=== PATIENT | male | born 1945 | race Caucasian/White ===

== ENCOUNTER 2025-04-13 15:36 | Outpatient (AMB) | payer MEDICARE, SELFPAY ==
--- OUTSIDE RECORDS SUMMARY | 2023-08-12 11:13 | XMS_ITS | Encounter Summary ---
Author Organization [place] [address] Care Team Providers Care Animal Geneticist Name Role Phone David Ashley MD Primary Care Provider [phone] Encounter Details Date Type Department Care Team ([facility] st Contact Info) Description 08/12/2023 12:13 PM EDT Hospital Encounter TH HISTORIC ENCOUNTERS EASTERN CONVERSION ONLY Catarina Lambert NP [address] [facility] [address] [place] [address] Social History Tobacco Use Types Packs/Day Years Used Date Smoking Tobacco: Former Cigarettes 1 Q uit: 07/03/2022 Smokeless Tobacco: Never Alcohol Use Standard Drinks/Week Comments Not Currently 0 (1 standard drink = 0.6 oz pur e alcohol) Sex and Gender Information Value Date Recorded Sex Assigned at Not on file Legal Sex Male 10:37 PM EST Gender Identity Not on file Sexual Orientation Not on file documented as of this encounter Last Filed Vital Signs Vital Sign Reading Time Taken Comments Blood Pressure - - Pulse - - Temperature - - Respiratory Rate - - Oxygen Saturation - - Inhaled Oxygen Concentration - - Weight 68.9 kg (152 lb) 03/29/2024 10:11 PM EDT Height 171.5 cm (5' 7.5 ) 03/29/2024 10:11 PM ED T Body Mass Index 23.46 03/29/2024 10:11 PM EDT documented in this encounter Functional Status * Calculated C-SSRS Risk Score (Lifetime/Recent) Answer Date of Assessment Author No Risk Indicated 02/18/2025 9:16 AM EDT Erasmo Cuello RN * [place] Suicide Severity Rating Scale (Screener/Recent Self-Report) Question Answer Date of Assessment Author 1. Wish to be (Past 1 Month) No 025 9:16 AM EDT Molly Cuello RN 2. Non-Specific Active Suici venancio Thoughts (Past 1 Month) No 02/18/2025 9:16 AM EDT Molly Cuello RN 6. Suicidal Behavior (Lifetime) No 9:16 AM EDT Molly Cuello RN documented as of this encounter Plan of Treatment Not on file documented as of this encounter Visit Diagnoses Not on filedocumented in this encounter Care Teams Animal Geneticist Relationship Specialty Start Date End Date David Ashley MD [address] [place] [address] PCP - General Internal Medicine 07/14/15 documented as of this encounter
--- OUTSIDE RECORDS SUMMARY | 2024-03-18 08:04 | XMS_ITS | Encounter Summary ---
Author Organization [email or web address] [address] Care Team Providers Care Property Field Adjuster Name Role Phone David Ashley MD Primary Care Provider [phone] Encounter Details Date Type Department Care Team ([facility] st Contact Info) Description 03/18/2024 9:04 AM EDT Hospital Encounter TH HISTORIC ENCOUNTERS EASTERN CONVERSION ONLY Bright Lindquist MD [address] [facility] [address] [place] [id number] Social History Tobacco Use Types Packs/Day Years [...] Sign Reading Time Taken Comments Blood Pressure 146/80 03/18/2024 9:18 AM EDT Pulse 68 03/18/2024 9:18 AM EDT Temperature - - Respiratory Rate - - Oxygen Saturation - - Inhaled Oxygen Concentration - - Weight 70.8 kg (156 lb) 03/18/2024 9:18 AM EDT Height 171.5 cm (5' 7.5 ) 03/18/2024 9:18 AM EDT Body Mass Index 24.07 03/18/2024 9:18 AM EDT documented in this encounter Functional Status * Calculated C-SSRS Risk Score (Lifetime/Recent) Answer Date of Assessment Author No Risk Indicated 02/18/2025 9:16 AM EDT Erasmo Cuello RN * [place] Suicide Severity Rating Scale (Screener/Recent Self-Report) Question Answer Date of Assessment Author 1. Wish to be (Past 1 Month) No 025 9:16 AM EDT Molly Cuello RN 2. Non-Specific Active Suici venancio Thoughts (Past 1 Month) No 02/18/2025 9:16 AM EDT Molly Cuello RN 6. Suicidal Behavior (Lifetime) No 9:16 AM EDT Molly Cuello RN documented as of this encounter Progress Notes * Bright Lindquist MD - 03/18/2024 9:15 AM EDT Images from the original note were not included. Progress Notes by Bright Lindquist MD at 03/18/2024 9:15 AM Author: Bright Lindquist MD Service: -- Author Type: Physician Filed: 03/18/2024 12:41 PM Encounter Date: 03/18/2024 Status: Signed Photovoltaic Subcontractor: Bright Lindquist MD (Physician) Cardiology Attending Follow up Outpatient Note- Bright Lindquist M.D. [facility] Patient Name:Rafael Garcia Patient :1945 Referring MD:David Ashley MD Chief Complaint: Preop HPI: The patient is a 78 y.o. male with a history of hypertension, hyperlipidemia, CVA and COPD who presents for follow up. He was found to have a lacunar infarct in 2022. Workup at that time showed mild carotid plaque but no stenosis and a normal echocardiogram. Most recently he has had episodes of chest tightness and shortness of breath. He presented to [facility] for this where he was ruled out for acute coronary syndrome. Cardiac evaluation was recommended. We sent him for a calcium score which came back mildly elevated at 36 and he subsequently had a nuclear stress test that was normal. We started him on Hyzaar for better blood pressure control. He returns today for follow-up. He was recently diagnosed with renal cell carcinoma and is planned for a nephrectomy. He is here for preoperative evaluation. He reports no recent chest pain or shortness of breath. No dizziness or syncope. No swelling or edema. He is easily able to climb a flight ofstairs. He had a low risk stress test about 6 months ago. Patient Active Problem List Diagnosis SNOMED CT(R) ? Urinary retention RETENTION OF URINE ? BPH with obstruction/lower urinary tract symptoms BENIGN PROSTATIC HYPERPLASIA WITH OUTFLOW OBSTRUCTION ? Acute kidney injury (HCC) ACUTE KIDNEY INJURY ? BPH with urinary obstruction BENIGN PROSTATIC HYPERPLASIA WITH OUTFLOW OBSTRUCTION ? Essential hypertension ESSENTIAL HYPERTENSION ? Mixed hyperlipidemia MIXED HYPERLIPIDEMIA ? Renal mass RENAL MASS Past Medical History: Diagnosis Date ? BPH (benign prostatic hyperplasia) ? COPD (chronic obstructive pulmonary disease) (HCC) ? GERD (gastroesophageal reflux disease) ? High cholesterol Past Surgical History: Procedure Laterality Date ? CERVICAL FUSION Anterior 09/11/2022 Procedure: C 08/03 ANTERIOR CERVICAL DISC FUSION 1 LEVEL; Surgeon: Deacon Torres MD; Location: [facility] OPERATING ROOM; Service: Spine; Laterality: Anterior; ? COLONOSCOPY N/A 08/18/2015 Procedure: COLONOSCOPY; Surgeon: Jerod Jurado MD; Location: [facility] ENDOSCOPY; Service: Gastroenterology; Laterality: N/A; ? PROSTATE SURGERY N/A 11/22/2022 Procedure: TRANSURETHRAL RESECTION OF PROSTATE; Surgeon: Ezequiel Jean MD; Location: [facility] MAIN OPERATING ROOM; Service: Urology; Laterality: N/A; 90m ? ROTATOR CUFF REPAIR Right ? VASECTOMY Social History Socioeconomic History ? Marital status: Single Spouse name: Not on file ? Number of children: Not on file ? Years of education: Not on file ? Highest education level: Not on file Occupational History ? Not on file Tobacco Use ? Smoking status: Former Packs/day: 1.00 Years: 53.00 Additional pack years: 0.00 Total pack years: 53.00 Types: Cigarettes Quit date: 07/2022 Years since quittin.7 Passive exposure: Past ? Smokeless tobacco: Never Substance and Sexual Activity ? Alcohol use: Not Currently Comment: rarely ? Drug use: No ? Sexual activity: Not on file Other Topics Concern ? Not on file Social History Narrative ? Not on file Social Determinants of Health Financial Resource Strain: Not on file Food Insecurity: Not on file Transportation Needs: Not on file Social Connections: Not on file Housing Stability: Not on file Family History Problem Relation Age of Onset ? Breast cancer Neg Hx ? Prostate cancer Neg Hx ? Nephrolithiasis Neg Hx Current Outpatient Medications Medication Sig Dispense Refill ? albuterol 108 (90 Base) MCG/ACT inhaler Inhale 2 puffs into the lungs every 6 (six) hours as needed. ? amLODIPine (NORVASC) tablet 5 mg Take 1 tablet (5 mg total) by mouth daily. ? betamethasone valerate (VALISONE) 0.1 % cream APPLY TO AFFECTED AREA TOPICALLY EVERY DAY 45 g 0 ? docusate sodium (Colace) 100 MG capsule Take 1 capsule (100 mg total) by mouth daily as needed for constipation. 30 capsule 2 ? losartan-hydrochlorothiazide (Hyzaar) 50-12.5 MG per tablet Take 1 tablet by mouth daily. 90 tablet 3 ? omeprazole (PRILOSEC) 40 MG capsule Take 1 capsule (40 mg total) by mouth daily. ? phenazopyridine (PYRIDIUM) 100 MG tablet TAKE 1 TABLET BY MOUTH 3 TIMES A DAY NEEDED FOR PAIN.20 tablet 0 No current facility-administered medications for this visit. No Known Allergies Review of Systems: (complete 12 point ROS completed and was all negative-except for noted positives in HPI and below) Constitutional: No fever, chills. No significant weight changes. Eyes : + Blurred vision CVS: As per HPI Resp: No cough, wheeze or sputum. GI: No nausea or vomitting. No diarrhea. No jaundice. : No urinary hesitancy or dribbling. No nocturia or urinary frequency. Skin: No skin changes. Vascular: No claudication or limb ischemia. Hem: No abnormal clotting. No bruising or bleeding. Rheum/MSK: No new joint swelling or pain. Neurologic: No focal neurological signs. Psych: Stable mood. Please see complete ROS scanned into the chart. Physical Exam: Vital signs: Vitals: 03/18/24 0918 BP: 146/80 Pulse: 68 SpO2: 96% Weight: 70.8 kg (156 lb) Height: 5' 7.5 (1.715 m) Body mass index is 24.07 kg/m??. General: Awake, alert, appears comfortable Head: Normocephalic and atraumatic. Neck: Supple. No carotid bruits. No JVD Cardiac: Regular rhythm. Normal heart sounds. No murmurs. Respiratory: Normal effort. Clear lungs. No crackles or wheezes. Abdomen: Soft. Non-tender. Non-distended. +BS Skin/Vascular: Warm dry skin. Normal peripheral pulses. Extremities: No LE edema. Neurologic: No focal abnormalities. Psychiatric: Alert and oriented x3. Normal mood. Labs: Lab Results Component Value Date WBC 6.5 08/01/2023 RBC 4.21 (L) 08/01/2023 HEMATOCRIT 35.7 (L) 08/01/2023 HEMOGLOBIN 12.5 (L) 08/01/2023 MCV 84.8 08/01/2023 MCH 29.7 08/01/2023 MCHC 35.0 08/01/2023 RDW 13.1 08/01/2023 PLTCOUNT 275 08/01/2023 MPV 9.4 08/01/2023 NEUTROPHILS 71.3 08/01/2023 LYMPHOCYTES 13.5 (L) 08/01/2023 EOSINOPHILS 2.9 08/01/2023 BASOPHILS 0.5 08/01/2023 NEUTROPHABSO 4.6 08/01/2023 LYMPHOCYABSO 0.9 (L) 08/01/2023 MONOCYTABSOL 0.7 08/01/2023 EOSINOPHIABS 0.2 08/01/2023 BASOPHILSABS 0.0 08/01/2023 Lab Results Component Value Date BUN 11 08/01/2023 CREATININE 1.0 08/01/2023 NA 140 08/01/2023 K 4.0 08/01/2023 CL 103 08/01/2023 CO2 29 08/01/2023 GLUCFASTING 109 (H) 02/06/2018 CALCIUM 8.9 08/01/2023 ALBUMIN 4.0 02/06/2018 ALKPHOS 65 02/06/2018 AST 12 02/06/2018 ALT 12 02/06/2018 LABBILI 0.7 02/06/2018 No results found for: HGBA1C Lab Results Component Value Date CHOL 241 (H) 08/12/2023 HDL 52 08/12/2023 LDLCHOL 149 (H) 08/12/2023 TRIGLYCERIDE 259 (H) 08/12/2023 CHOLHDLCRAT 4.6 08/12/2023 Data/Imaging: X-Ray Abdomen 1 view Result Date: 02/19/2024 Exam: X-ray abdomen 2 views INDICATION: Pain There is moderate diffuse fecal retention. No acute bowel obstruction. The flank stripes and psoas outlines appear intact. Renal outlines partially obscured. Mild degenerative change of hips IMPRESSION: Moderate fecal retention without obstruction Reportreviewed and signed by : Dr. Dmitry Tenorio on 02/19/2024 3:16 PM. Workstation Name - DAISHA *I have personally reviewed the patients cardiac imaging and diagnostics and my independent conclusions are contained below. TTE 10/25/2022: LVEF 60%. Aortic sclerosis. CAC 08/08/2023: 36.1 SPECT MPI 08/12/2023: LVEF 52%. Normal perfusion. ECG: Sinus rhythm. Normal ECG. Assessment and Plan: 1) preoperative evaluation: He is scheduled for a nephrectomy with Dr. Lazar on 03/29/2024. He reports no concerning cardiac symptoms. He has a good functional tolerance. He had a low risk nuclear stress test in August 2023. He may proceed with planned surgery without any further cardiac testingat this time. 2) HTN: Blood pressure mildly elevated but acceptable. Continue present therapy with close monitoring. 3) hyperlipidemia: He had a mildly elevated calcium score with LDL 149. Continue atorvastatin 20 mgdaily. Goal LDL <100. 4) CVA: He has a prior lacunar infarct likely from hypertension. He had a CTA which showed atherosclerotic calcifications but no stenosis. Recommend tight blood pressure control as above. The patient was counseled on therapeutic lifestyle changes, including cardiovascular exercise and dietary modification, to promote achieving goal weight, optimal lipid parameters, and increased cardiovascular fitness . Diagnoses and all orders for this visit: Preop cardiovascular exam - ECG 12 lead Essential hypertension Mixed hyperlipidemia Return in about 6 months (around 09/16/2024), or if symptoms worsen or fail to improve. Bright Lindquist MD, [facility], [facility] Cardiologists, [facility] 03/18/2024 11:53 AM EST documented in this encounter Plan of Treatment Not on file documented as of this encounter Procedures Procedure Name Priority Date/Time Associated Diagnosis Comments ECG 03/18/2024 documented in this encounter Results * ECG (03/18/2024) us Provider Onbase CV HISTORICAL CONV PROCEDURES Final Result documented in this encounter Visit Diagnoses Not on filedocumented in this encounter Care Teams Property Field Adjuster Relationship Specialty Start Date End Date David Ashley MD [address] [place] [address] PCP - General Internal Medicine 07/14/15 documented as of this encounter
[2025-04-13 15:32] VITALS: BP 148/70; PULSE 93; O2SAT 97; BMI 24.0
--- NOTE | 2025-04-13 15:32 | HO.NEPHOV ---
Vital Signs 04/13/25 15:32 Height 5 ft 7 in Weight 153 lb BMI 24.0 BP 148/70 H Blood Pressure Location Lt brachial Position Sitting Pulse 93 Pulse Source Pulse Oximeter Pulse Oximetry (%) 97 Oxygen Delivery Method Room Air Intake Visit Reasons: ENP: HTN/Hyperlipidemia/Anemia. Air Saw Operator Required: No Accompanied by: Self / Same As Patient Allergies Seasonal Allergies Allergy (Unknown, Verified 04/13/25 15:38) Unknown Medication List - Last Reconciled 04/13/25 by Gurpreet Dick MD albuterol sulfate 90 mcg/actuation 2 puffs inhalation Q6H PRN amlodipine 5 mg PO DAILY czwgfdyhdb-rgvjqzvi-bymxftehav 160-9-4.8 mcg/actuation (Breztri Aerosphere) 2 inhalations inhalation DAILY PRN linaclotide (Linzess) 145 mcg PO DAILY losartan-hydrochlorothiazide 50-12.5 mg 1 tab PO DAILY memantine 10 mg PO DAILY omeprazole 40 mg PO QAM trazodone 50 mg PO BEDTIME HPI Comments Details: The patient is a 79-year-old male presenting with decreased kidney function and associated symptoms. He has a history of partial nephrectomy on the right kidney due to a spot identified during a CAT scan, which was removed via robotic surgery. The left kidney was not affected, and the surgery occurred several years ago. The patient has a history of hypertension for at least five years, managed with losartan hydrochlorothiazide and amlodipine. The patient underwent prostate surgery approximately three years ago, which initially involved catheterization for about a week. He reports occasional urinary incontinence and nocturia, waking once per night to urinate. The patient experiences constipation, managed with Linzess, and reports needing to force bowel movements. He has a history of smoking, having quit four years ago after smoking a pack a day. [facility] Medical History (Updated 04/13/25 @ 16:11 by Gurpreet Dick MD) Hypomagnesemia Hypocalcemia Mixed hyperlipidemia MCI (mild cognitive impairment) GERD (gastroesophageal reflux disease) CKD (chronic kidney disease) Cancer of right kidney Kidney malignancy Muscle spasm Hyperlipidemia Disease of spinal cord, unspecified Hypertension Reeves catheter in place on admission COPD (chronic obstructive pulmonary disease) Hematuria Anemia Surgical History (Updated 04/13/25 @ 15:42 by STACEY Byrne) History of prostate surgery (~2022) Physical Exam Vital Signs: Last Vital Signs Pulse 93 04/13/25 15:32 BP 148/70 H 04/13/25 15:32 Pulse Ox 97 04/13/25 15:32 Oxygen Delivery Method Room Air 04/13/25 15:32 BMI result Body Mass Index 24.0 Comfortable Neck supple no JVD. Lungs entry equal no rales. Heart S1-S2 heard no gallop or rub. Abdomen soft nontender. Neuro alert awake oriented. No asterixis. Extremities no edema. Results Reviewed Results Reviewed: Creatinine 1.82 EGFR 13 mL/minute Potassium 5.7. Assessment & Plan Assessment & Plan (1) CKD (chronic kidney disease): Code(s): N18.9 - Chronic kidney disease, unspecified Category: Medical Plan 1. Chronic Kidney Disease Differential diagnosis includes obstructive uropathy. Other possibilities including hypertensive nephrosclerosis. Less likely possibilities would include glomerular nephritis interstitial disease and we will rule that out. - Plan to perform a kidney ultrasound to assess kidney and bladder condition. - Blood and urine tests are ordered to evaluate kidney function and potassium levels. - Temporarily discontinue losartan due to LEVI and hyperkalemia 2. Hypertension Maintain blood pressure less than 130/80 Stay on low-sodium diet I will readjust antihypertensives after the basic workup. 3. Hyperkalemia Due to the accompanied with LEVI and continued use of ARB. Hold losartan - Advise to avoid high potassium foods such as bananas and oranges. - Plan to monitor potassium levels through blood tests. Orders: Orders Basic Metabolic Panel Today I10 - Essential (primary) hypertension, N18.9 - Chronic kidney disease, unspecified Total Protein Urine Random Today I10 - Essential (primary) hypertension, N18.9 - Chronic kidney disease, unspecified UA and rflx microscopic Today I10 - Essential (primary) hypertension, N18.9 - Chronic kidney disease, unspecified Parathyroid Hormone Intact Today I10 - Essential (primary) hypertension, N18.9 - Chronic kidney disease, unspecified US renal BI Today I10 - Essential (primary) hypertension, N18.9 - Chronic kidney disease, unspecified Complete Blood Count no Diff Today I10 - Essential (primary) hypertension, N18.9 - Chronic kidney disease, unspecified Creatinine Urine Today I10 - Essential (primary) hypertension, N18.9 - Chronic kidney disease, unspecified Patient Instructions: - Stop taking losartan until further notice. - Avoid eating bananas and oranges due to high potassium content. - Continue using Linzess daily until bowel movements are regular. - Schedule and complete a kidney ultrasound before traveling. - Follow up with blood and urine tests as ordered. Coding Level of Care Code New Pt Level 4 (64638) Diagnoses CKD (chronic kidney disease) N18.9
--- OUTSIDE RECORDS SUMMARY | 2025-04-13 18:42 | XMS_ITS | Clinical Summary ---
Author Organization [facility] [employer] [place] Address [address] [place] [address] Phone Care Team Providers Care Food Or Baggage Handling [place] Name Role Phone David Ashley MD Primary Care Provider [phone] Allergies No known active allergies Medications budesonide/glyc opyr/formoterol (BREZTRI AEROSPHERE INHL) Inhale into the lungs daily. Active albuterol HFA (PROAIR HFA ; PROVENTIL HFA ; VENTOLIN HFA) 90 mcg/actuation inhaler Inhale 2 puffs into the lungs every 6 (six) hours as needed. 10/29/2022 Active omeprazole (PriLOSEC) [address] capsule Take 1 capsule (40 mg total) by mouth daily. 06/05/2015 Active oxyCODONE (ROXICODONE) 5 mg immediate release tablet Take 1 tablet (5 mg total) by mouth every 4 (four) hours as needed for pain for up to 6 doses. 04/01/2024 Active atorvastatin (LIPITOR) 20 mg tablet TAKE 1 TABLET BY MOUTH EVERY DAY 90 tablet 02/18/2025 Active cyanocobalamin (VITAMIN B-12) 1,000 mcg tablet Take 1 tablet (1,000 mcg total) by mouth 1 (one) time each day. 30 each 2 02/20/2025 05/21/20 25 Active multivitamin tablet Take 1 tablet by mouth 1 (one) time each day. 30 each 02/21/2025 03/23/20 25 ergocalciferol (VITAMIN D-2) 1,250 mcg (50,000 unit) capsule Take 1 capsule (50,000 Units total) by mouth 1 (one) time per week. 6 capsule 02/20/2025 04/03/20 25 Active Problems Problem Noted Date Diagnosed Date Hypocalcemia 02/18/2025 Assessment & Plan (02/18/2025 1:42 PM EDT): Tingling all over on admit -- Low ionized ca S/p one dose of iv calcium gluconate Recheck after replacement Check intact PTH , dihydroxy vit D levels Nephrology consult Hypomagnesemia 02/18/2025 Assessment & Plan (02/18/2025 1:42 PM EDT): Poor oral intake and combination of thiazide diuretics with rt partial nephrectomy Replace iv Hold PPI --may be contributing to poor absorption Renal insufficiency 02/18/2025 Assessment & Plan (02/18/2025 1:42 PM EDT): No past labs Gfr 47 For now hydrate with ns 75ml /hr Renal US Consult neph-dont think he follows with anyone COPD (chronic obstructive pu lmonary disease) ([facility] V24, [facility] V28) 02/18/2025 Assessment & Plan (02/18/2025 1:42 PM EDT): Stopped smoking 3yrs ago Not wheezing Not oxyg or steroid dep Has neb machine at home Continue prn alb nebs Renal cell cancer, right ([facility] V24, [facility] V 28) 02/18/2025 Assessment & Plan (02/18/2025 1:42 PM EDT): S/p partial nephrectomy -rt --03/25 Follows with his urologist -as per the patient --last f/u 04/25--with 6mth f/u No hematuria GERD (gastroesophageal reflux disease) 5 Assessment & Plan (02/18/2025 1:42 PM EDT): Asymptomatic Hold PPI for now --severe hypoma 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 02/18/2025 Assessment & Plan (02/18/2025 1:42 PM EDT): As evidenced by CT Cx spine--stable -no radiculitis History of CVA (cerebrovascular accident) 2024 Assessment & Plan (02/18/2025 1:42 PM EDT): Old left BG cva Not taking any aspirin Will resume ( patient counselled ) Anemia 02/18/2025 Assessment & Plan (02/18/2025 1:42 PM EDT): Asymptomatic Anemia profile - Renal mass 02/06/2024 Hypertension 08/07/2023 Assessment & Plan (02/18/2025 1:42 PM EDT): Systolics soft --hold amlodipine and losartan/hct for now Mixed hyperlipidemia 08/07/2023 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 Acute kidney injury (CMS/[facility] V24) 11/12/2022 Overview (05/11/2024): Added automatically from request for surgery [id number] BPH with obstruction/lower urinary tract symptom s 11/12/2022 Overview (05/11/2024): Added automatically from request for surgery [id number] Urinary retention 11/02/2022 Encounters Date Type Department Care Team Description 02/18/2025 9:00 AM EDT - 02/20/2025 3:08 PM EDT Hospital Encounter [facility] CV Surg Card 8-[address] [place] [address] Reji Bautista MD Maan, Vikas, MD Jain, Varun, MD Hypocalcemia (Primary Dx); Dizziness; Hypomagnesemia Discharge Disposition: Home or Self Care from Last 3 Months Surgical History Surgery Date Site/Laterality Comments ROTATOR CUFF REPAIR Right PROCEDURE:ROTATOR CUFF REPAIR VASECTOMY PROCEDURE:VASECTOMY COLONOSCOPY 08/18/2015 N/A PROCEDURE:COLONOSCOPY;COMMENT:Procedure : COLONOSCOPY; Surgeon: Jerod Jurado MD; Location: [facility]; Service: Gastroenterology; Laterality: N/A; CERVICAL FUSION 09/11/2022 Anterior PROCEDURE:CERVICAL FUSION;COMMENT:Procedure: C 3/4 ANTERIOR CERVICAL DISC FUSION 1 LEVEL; Surgeon: Deacon Torres MD; Location: [facility] RO[facility]; Service: Spine; Laterality: Anterior; PROSTATE SURGERY 11/22/2022 N/A PROCEDURE:PROSTATE SURGERY;COMMENT:Procedure: TRANSURETHRAL RESECTION OF PROSTATE; Surgeon: Ezequiel Jean MD; Location: [facility]; Service: Urology; Laterality: N/A; 90m Medical History Medical History Date Comments High cholesterol DX:High cholest erika BPH (benign prostatic hyperplasia) DX:BPH (benign prostatic hyperplasia) GERD (gastroesophageal reflux disease) DX:GERD (gastroesophageal reflux disease) COPD (chronic obstructive pu lmonary disease) ([facility] V24, [facility] V28) DX:COPD (chronic o bstructive pulmonary disease) ([facility]) Hypertension DX:Hypertension HL (hearing loss) DX:HL (hearing loss);COMMENT:hearing aids Visual impairment DX:Visual impa irment Family History Medical History Relation Name Comments Breast cancer Neg Hx Nephrolithiasis Neg Hx Prostate cancer Neg Hx Social History Tobacco Use Types Packs/Day Years [...] on file Sexual Orientation Not on file Obstetrics History Last Filed Vital Signs Vital Sign Reading Time Taken Comments Blood Pressure 123/71 02/20/2025 11:25 AM EDT Pulse 72 02/20/2025 11:25 AM EDT Temperature 36.6 C (97.8 F) 02/20/2025 11:25 AM EDT Respiratory Rate 16 02/20/2025 11:25 AM EDT Oxygen Saturation 98% 02/20/2025 11:25 AM EDT Inhaled Oxygen Concentration - - Weight 68 kg (150 lb) 02/18/2025 1:12 PM EDT Height 170.2 cm (5' 7 ) 02/18/2025 1:12 PM EDT Body Mass Index 23.49 02/18/2025 1:12 PM EDT Plan of Treatment Health Maintenance Due Date Last Done Comments Pneumococcal Vaccine: 50+ Years (3 of 3 - PCV20 or PCV21) 09/20/2015 06/21/2015, 09/19/2010, 09/19/2010 DTaP,Tdap,and Td Vaccines (4 - Td or Tdap) 09/19/2020 09/19/2010, 09/19/2010, 05/02/1999 RSV Immunization Adult Patients (1 - 1-dose 75+ series) 2021 Hepatitis C Screening 05/05/2022 Medicare Annual Wellness Visit 05/05/2022 Social Influencers of Health Screening 05/05/2022 Zoster Vaccines (2 of 2) 07/03/2022 05/08/2022, 08/01 Depression Screening 06/02/2024 COVID-19 Vaccine ( - season) 2025 06/09/2021, 09/20/2020, 08/29/2020 Influenza Vaccine (#1) 2025 , 06/16/2020, 04/02/2017, Additional history exists Lung Cancer Screening (Low Dose CT) 08/02/2025 08/02/2024 Falls Risk Assessment 02/20/2026 02/20/2025 Hypertension/CHF/CAD Annual BMP Blood Test 02/20/2026 02/20/2025, 02/19/2025, 02/18/2025, Additional history exists Cholesterol Screening (Lipid Panel) 08/11/2028 08/12/2023, 02/06/2018 Abdominal Aortic Aneurysm (AAA) Screen Completed 02/23/2025 HIB Vaccines Aged Out No longer eligi ble based on patient's age to complete this topic HPV Vaccines Aged Out No longer eligi ble based on patient's age to complete this topic Hepatitis A Vaccines Aged Out No long er eligible based on patient's age to complete this topic Hepatitis B Vaccines Aged Out No long er eligible based on patient's age to complete this topic IPV Vaccines Aged Out No longer eligi ble based on patient's age to complete this topic MMR Vaccines Aged Out No longer eligi ble based on patient's age to complete this topic Meningococcal ACWY Vaccine Aged Out N o longer eligible based on patient's age to complete this topic Meningococcal B Vaccine Aged Out No l onger eligible based on patient's age to complete this topic RSV Immunization Patients Under 20 months Aged Out No longer eligible based on patient's age to complete this topic Varicella Vaccines Aged Out No longer eligible based on patient's age to complete this topic Medical Devices Implanted Type 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 Device Identifier Shelf Expiration Date Model / Serial / Lot Surgiflo Hemostatic Matrix [employer]il-Ethi [id number] Implanted:Qty: 1 on 09/11/2022 by Deacon Torres MD Implants N/A: Spine Cervical [employer] 04/01/2024 2991 / / [id number] Surgiflo Hemostatic Matrix [employer]il-Ethi [id number] Implanted:Qty: 1 on 03/29/2024 by Davin Lazar MD Implants Right: Kidney [employer] 08/10/2025 2991 / / [id number] Vikos Cervical 14x14.5x6mm 7d Stry-Spin [id number] - [id number] Implanted:Qty: 1 on 09/11/2022 by Deacon Torres MD N/A: Spine Cervical [employer] 12/29/2024 [id number] / [id number] / Anterior Cervical Plate Constr 1 Level 22mm Stry-K2m [id number] Implanted:Qty: 1 on 09/11/2022 by Deacon Torres MD N/A: Spine Cervical [employer] [id number] / / Screw Va Self-Start 4x14mm Stry-K2m [id number] Implanted:Qty: 4 on 09/11/2022 by Deacon Torres MD N/A: Spine Cervical [employer] [id number] / / Procedures Procedure Name Priority Date/Time Associated Diagnosis Comments CBC WITH AUTO DIFFERENTIAL Routine 02/20/2025 7:40 AM EDT CBC AND DIFFERENTIAL Routine 02/20/2025 7:40 AM EDT BASIC METABOLIC PANEL Routine 02/20/2025 7:40 AM EDT MAGNESIUM Routine 02/20/2025 7:40 AM EDT PHOSPHORUS Routine 02/20/2025 7:[address] CHEST WO CONTRAST STAT 02/19/2025 2:35 PM EDT VITAMIN D 25 HYDROXY STAT 02/19/2025 12:28 PM EDT US RETROPERITONEAL COMPLETE Routine 02/19/2025 11:26 AM EDT IRON AND TIBC Routine 02/19/2025 8:44 AM EDT FERRITIN Routine 02/19/2025 8:44 AM EDT VITAMIN B12 AND FOLATE Routine 8:44 AM EDT VITAMIN D 1,25 DIHYDROXY Routine 02/19/2025 8:44 AM EDT CALCIUM, IONIZED Routine 02/19/2025 8:44 AM EDT MAGNESIUM Routine 02/19/2025 8:44 AM EDT BASIC METABOLIC PANEL Routine 02/19/2025 8:44 AM EDT ALBUMIN STAT 02/18/2025 8:12 PM EDT CALCIUM STAT 02/18/2025 8:12 PM EDT MAGNESIUM STAT 02/18/2025 8:12 PM EDT PARATHYROID HORMONE INTACT STAT 02/18/2025 11:[address] ANGIO HEAD/NECK WO AND/OR W CONTRAST STAT 02/18/2025 11:[address] CERVICAL SPINE WO CONTRAST STAT 02/18/2025 11:28 AM EDT MAGNESIUM STAT 02/18/2025 10:47 AM EDT BASIC METABOLIC PANEL STAT 02/18/2025 10:47 AM EDT CALCIUM, IONIZED STAT 02/18/2025 10:4 7 AM EDT POCT GLUCOSE BLOOD Routine 02/18/2025 9: 24 AM EDT ALBUMIN Add-On 02/18/2025 9:20 AM EDT PHOSPHORUS STAT Add-on 02/18/2025 9:20 AM EDT CBC WITH AUTO DIFFERENTIAL STAT 02/18/2025 9:20 AM EDT MAGNESIUM STAT 02/18/2025 9:20 AM EDT BASIC METABOLIC PANEL STAT 02/18/2025 9:20 AM EDT CBC AND DIFFERENTIAL STAT 02/18/2025 9:20 AM EDT ECG 12-LEAD STAT 02/18/2025 9:18 AM EDT LIPID PANEL Routine 08/12/2023 from Last 3 Months or Most Recently Relevant to Health Maintenance Results * (ABNORMAL) CBC auto differential (02/20/2025 7:40 AM EDT) Only the most recent of2 resultswithin the time period is included. WBC 4.2 4.0 - 10.5 K/[facility] LAB HEMETOLOGY METHOD 02/20/2025 9:[address] [facility] RBC 3.19(L) 4.70 - 6.00 M/[facility] LAB HEMETOLOGY METHOD 02/20/2025 9:13 AM EDT [facility] Hemoglobin 9.7(L) 13.5 - 18.0 g/dL LAB HEMETOLOGY METHOD 02/20/2025 9:13 AM EDT [facility] Hematocrit 28.8(L) 40.0 - 54.0 % LAB HEMETOLOGY METHOD 02/20/2025 9:13 AM EDT [facility] MCV 90.2 78.0 - 100.0 FL LAB HEMETOLOGY METHOD 02/20/2025 9:13 AM EDT [facility] MCH 30.4 25.0 - 33.0 pcg LAB HEMETOLOGY METHOD 02/20/2025 9:13 AM EDT [facility] MCHC 33.7 32.0 - 36.0 g/dL LAB HEMETOLOGY METHOD 02/20/2025 9:13 AM EDT [facility] RDW 13.3 12.1 - 17.7 % LAB HEMETOLOGY METHOD 02/20/2025 9:13 AM EDT [facility] Platelets 297 150 - 450 K/mcL LAB HEMETOLOGY METHOD 02/20/2025 9:13 AM EDT [facility] MPV 7.5 7.4 - 11.4 FL LAB HEMETOLOGY METHOD 02/20/2025 9:13 AM EDT [facility] Neutrophils Relative 54.6 44.0 - 74.0 % LAB HEMETOLOGY METHOD 02/20/2025 9:13 AM EDT [facility] Lymphocytes Relative 24.3 20.0 - 48.0 % LAB HEMETOLOGY METHOD 02/20/2025 9:13 AM EDT [facility] Monocytes Relative 14.3(H) 2.0 - 12.0 % LAB HEMETOLOGY METHOD 02/20/2025 9:13 AM EDT [facility] Eosinophils Relative 6.3(H) 0.0 - 6.0 % LAB HEMETOLOGY METHOD 02/20/2025 9:13 AM EDT [facility] Basophils Relative 0.5 0.0 - 2.0 % LAB HEMETOLOGY METHOD 02/20/2025 9:13 AM EDT [facility] Neutrophils Absolute 2.30 1.80 - 7.80 K/mcL LAB HEMETOLOGY METHOD 02/20/2025 9:13 AM EDT [facility] Lymphocytes Absolute 1.00 1.00 - 3.20 K/mcL LAB HEMETOLOGY METHOD 02/20/2025 9:13 AM EDT [facility] Monocytes Absolute 0.60 0.00 - 0.80 K/mcL LAB HEMETOLOGY METHOD 02/20/2025 9:13 AM EDT [facility] Eosinophils Absolute 0.30 0.00 - 0.50 K/mcL LAB HEMETOLOGY METHOD 02/20/2025 9:13 AM EDT [facility] Basophils Absolute 0.00 0.00 - 0.20 K/mcL LAB HEMETOLOGY METHOD 02/20/2025 9:13 AM EDT [facility] Blood Venous blood specimen / Unknown Venipuncture / Unknown 02/20/2025 7:40 AM EDT 02/20/2025 8:44 AM EDT us Mario Graham MD LAB BLOOD ORDERABLES Final Resul t [facility] [address] [place] [address], [place] [phone] * Phosphorus (02/20/2025 7:40 AM EDT) Only the most recent of2 resultswithin the time period is included. Phosphorus 2.6 2.5 - 4.5 mg/dL LAB CHEMISTRY METHOD 02/20/2025 9:13 AM EDT [facility] Blood Venous blood specimen / Unknown Venipuncture / Unknown 02/20/2025 7:40 AM EDT 02/20/2025 8:44 AM EDT us Mario Graham MD LAB BLOOD ORDERABLES Final Resul t Performing Organization Address [facility]/ZIP Co de Phone Number [facility] [address] [place] [address], [place] [phone] * Magnesium (02/20/2025 7:40 AM EDT) Only the most recent of5 resultswithin the time period is included. Magnesium 1.8 1.7 - 2.8 mg/dL LAB CHEMISTRY METHOD 02/20/2025 9:13 AM EDT [facility] Blood Venous blood specimen / Unknown Venipuncture / Unknown 02/20/2025 7:40 AM EDT 02/20/2025 8:44 AM EDT us Mario Graham MD LAB BLOOD ORDERABLES Final Resul t Performing Organization Address [facility] de Phone Number [facility] [address] [place] [address], [place] [phone] * (ABNORMAL) Basic metabolic panel (02/20/2025 7:40 AM EDT) Only the most recent of4 resultswithin the time period is included. Sodium 134(L) 135 - 145 mmol/L LAB CHEMISTRY METHOD 02/20/2025 9:28 AM EDT [facility] Potassium 4.7 3.5 - 5.1 mmol/L LAB CHEMISTRY METHOD 02/20/2025 9:28 AM EDT [facility] Chloride 102 98 - 107 mmol/L LAB CHEMISTRY METHOD 02/20/2025 9:28 AM EDT [facility] CO2 25 24 - 32 mmol/L LAB CHEMISTRY METHOD 02/20/2025 9:28 AM EDT [facility] Anion Gap 7 5 - 14 LAB CHEMISTRY METHOD 02/20/2025 9:28 AM EDT [facility] Glucose 94 70 - 199 mg/dL LAB CHEMISTRY METHOD 02/20/2025 9:28 AM EDT [facility] BUN 10 9 - 20 mg/dL LAB CHEMISTRY METHOD 02/20/2025 9:28 AM EDT [facility] Creatinine 1.10 0.70 - 1.30 mg/dL LAB CHEMISTRY METHOD 02/20/2025 9:28 AM EDT [facility] eGFR 69 >=60 mL/min/1. 73m2 LAB CHEMISTRY METHOD 02/20/2025 9:28 AM EDT [facility] Comment:Calculation based on the Chronic Kidney Disease Epidemiology Collaboration (CKD-EPI) equation refit without adjustment for race. BUN/Creatinine Ratio 9.1(L) 12.0 - 20.0 LAB CHEMISTRY METHOD 02/20/2025 9:28 AM EDT [facility] Calcium 8.3(L) 8.4 - 10.2 mg/dL LAB CHEMISTRY METHOD 02/20/2025 9:28 AM EDT [facility] Comment:Verified by repeat a nalysis Blood Venous blood specimen / Unknown Venipuncture / Unknown 02/20/2025 7:40 AM EDT 02/20/2025 8:44 AM EDT us Mario Graham MD LAB BLOOD ORDERABLES Final Resul t [facility] [address] [place] [address], [place] [phone] * CT Chest wo Contrast (02/19/2025 2:35 PM EDT) Anatomical Region Laterality Modality Body Computed Tomogra phy 02/19/2025 2:37 PM EDT Impressions 02/19/2025 2:55 PM EDT 1. Moderately severe bilateral upper lobe predominant emphysematous changes. No airspace consolidation or pleural effusion. Ill-defined irregular shaped right upper lobe opacity. Differential considerations include infection or malignancy. Follow-up CT of the chest in 3 months is recommended. 0.4 cm left apical pulmonary nodule. 2. Mildly enlarged mediastinal lymph nodes and thickening of the anterior mediastinal pleura, nonspecific. 3. Generalized wall thickening of the stomach and prominent fat stranding throughout the visualized portions of the abdomen. Further evaluation with contrast-enhanced CT of the abdomen and pelvis is recommended. -------- FINAL REPORT -------- Dictated By: Amairani Simmons Dictated Date: 02/19/2025 14:37 ET Assigned Physician: Amairani Simmons Reviewed and Electronically Signed By: Amairani Simmons Signed Date: 02/19/2025 14:55 ET Workstation ID: [id number] Transcribed By: Self Edit Transcribed Date: 02/19/2025 14:37 ET Narrative 02/19/2025 2:[address] CHEST WITHOUT CONTRAST HISTORY: Respiratory illness right upper lobe pulmonary abnormality on prior imaging. TECHNIQUE: Contiguous helical CT slices through the chest were obtained without the administration of intravenous contrast. Coronal and sagittal reformatted images were made available. All CT scans are performed using dose optimization technique as appropriate to a performed exam including the following: Automated Exposure control and adjustment of the mA and/or kV according to patient size. COMPARISON: Chest x-ray dated February 09, 2024 and MRI of the abdomen dated January 20, 2024 FINDINGS: LUNGS/AIRWAY: Moderately severe bilateral upper lobe predominant emphysematous changes are present. There is no airspace consolidation or pleural effusion. There is a 0.4 cm left apical pulmonary nodule adjacent to a vessel seen on axial series 2 image 58. In addition, there is an ill-defined irregular shaped right upper lobe opacity seen on axial images 100-114. Differential considerations include infection or malignancy. The airways are widely patent. There is no bronchiectasis. MEDIASTINUM/PAPO: Mildly enlarged mediastinal lymph nodes are present in the pretracheal region measuring up to 1.1 cm in short axis. The thoracic esophagus is unremarkable. CARDIOVASCULAR: Heart is normal in size. No pericardial effusion. Thoracic aorta is normal in caliber and demonstrates atherosclerotic changes. CHEST WALL/PLEURA: There is thickening of the anterior mediastinal pleura which is nonspecific. No pleural effusion or pneumothorax. AXILLA/SUPRACLAVICULAR: No axillary or supraclavicular lymphadenopathy. Visualized thyroid is unremarkable. BONES: No aggressive osseous lesions. LIMITED UPPER ABDOMEN: There is prominent generalized wall thickening of the stomach. Marked fat stranding is present throughout the visualized abdomen. Further evaluation with contrast-enhanced CT of the abdomen and pelvis is recommended. Procedure Note Amairani Simmons MD - 02/19/2025 CT CHEST WITHOUT CONTRAST HISTORY: Respiratory illness right upper lobe pulmonary abnormality onprior imaging. TECHNIQUE: Contiguous helical CT slices through the chest were obtainedwithout the administration of intravenous contrast. Coronal and sagittalreformatted images were made available. All CT scans are performed usingdose optimization technique as appropriate to a performed exam includingthe following: Automated Exposure control and adjustment of the mA and/orkV according to patient size. COMPARISON: Chest x-ray dated February 09, 2024 and MRI of the abdomendated January 20, 2024 FINDINGS: LUNGS/AIRWAY: Moderately severe bilateral upper lobe predominant emphysematous changesare present. There is no airspace consolidation or pleural effusion. Thereis a 0.4 cm left apical pulmonary nodule adjacent to a vessel seen onaxial series 2 image 58. In addition, there is an ill-defined irregularshaped right upper lobe opacity seen on axial images 100-114. Differentialconsiderations include infection or malignancy. The airways are widelypatent. There is no bronchiectasis. MEDIASTINUM/PAPO: Mildly enlarged mediastinal lymph nodes are present inthe pretracheal region measuring up to 1.1 cm in short axis. The thoracicesophagus is unremarkable. CARDIOVASCULAR: Heart is normal in size. No pericardial effusion. Thoracicaorta is normal in caliber and demonstrates atherosclerotic changes. CHEST WALL/PLEURA: There is thickening of the anterior mediastinal pleurawhich is nonspecific. No pleural effusion or pneumothorax. AXILLA/SUPRACLAVICULAR: No axillary or supraclavicular lymphadenopathy.Visualized thyroid is unremarkable. BONES: No aggressive osseous lesions. LIMITED UPPER ABDOMEN: There is prominent generalized wall thickening ofthe stomach. Marked fat stranding is present throughout the visualizedabdomen. Further evaluation with contrast-enhanced CT of the abdomen andpelvis is recommended. IMPRESSION: 1. Moderately severe bilateral upper lobe predominant emphysematouschanges. No airspace consolidation or pleural effusion. Ill-definedirregular shaped right upper lobe opacity. Differential considerationsinclude infection or malignancy. Follow-up CT of the chest in 3 months isrecommended. 0.4 cm left apical pulmonary nodule. 2. Mildly enlarged mediastinal lymph nodes and thickening of the anteriormediastinal pleura, nonspecific. 3. Generalized wall thickening of the stomach and prominent fat strandingthroughout the visualized portions of the abdomen. Further evaluation withcontrast-enhanced CT of the abdomen and pelvis is recommended. -------- FINAL REPORT -------- Dictated By: Amairani Simmons Dictated Date: 02/19/2025 14:37 ET Assigned Physician: Amairani Simmons Reviewed and Electronically Signed By: Amairani Simmons Signed Date: 02/19/2025 14:55 ET Workstation ID: [id number] Transcribed By: Self Edit Transcribed Date: 02/19/2025 14:37 ET us Mario Graham MD IMG CT PROCEDURES Final Result * (ABNORMAL) Vitamin D 25 hydroxy (02/19/2025 12:28 PM EDT) Vit D, 25-Hydroxy 24.9(L) 30.0 - 100.0 ng/mL LAB CHEMISTRY METHOD 02/19/2025 1:44 PM EDT [facility] Blood Venous blood specimen / Unknown Venipuncture / Unknown 02/19/2025 12:28 PM EDT 02/19/2025 12:43 PM EDT Narrative [facility] - 02/19/2025 1:44 PM EDT Vitamin D Reference Range ng/ml Deficiency <10 Insufficiency 10-30 Sufficiency 30-100 Toxicity >100 us Mario Graham MD LAB BLOOD ORDERABLES Final Resul t [facility] [address] [place] [address], [place] [phone] * US Retroperitoneal Complete (02/19/2025 11:26 AM EDT) Anatomical Region Laterality Modality Body Ultrasound 02/20/2025 3:15 PM EDT Impressions 02/20/2025 3:19 PM EDT 1. There is a 2.6 cm solid right renal mass, correlating with the known right renal mass seen on MRI and suspicious for renal cell carcinoma. 2. Prostatomegaly. -------- FINAL REPORT -------- Dictated By: Sancho Chaney Dictated Date: 02/20/2025 15:15 ET Assigned Physician: Sancho Chaney Reviewed and Electronically Signed By: Sancho Chaney Signed Date: 02/20/2025 15:19 ET Workstation ID: [id number] Transcribed By: Self Edit Transcribed Date: 02/20/2025 15:15 ET Narrative 02/20/2025 3:19 PM EDT ULTRASOUND OF THE KIDNEYS AND URINARY BLADDER CLINICAL HISTORY: Renal mass, renal insufficiency TECHNIQUE: Multiple sonographic images obtained. COMPARISON: MRI brain 01/20/2024 FINDINGS: RIGHT KIDNEY: The right kidney measures 9.7 cm. There is normal parenchymal echotexture. There is no evidence for nephrolithiasis in the images obtained. There is no evidence of hydronephrosis in the images obtained. There is a 2.6 x 2.4 x 2.2 cm solid right renal mass. LEFT KIDNEY: The left kidney measures 9.4 cm. There is normal parenchymal echotexture. There is no evidence for nephrolithiasis in the images obtained. There is no evidence of hydronephrosis in the images obtained. There are no cystic masses in the images obtained. URINARY BLADDER: The urinary bladder is fluid-filled. There are no masses in the images obtained. There is no evidence of debris. There is no evidence of urinary bladder wall thickening. No free fluid is demonstrated. Prevoid bladder has 124 ml of fluid. Postvoid bladder has 46 ml of fluid. Enlarged prostate measuring up to 4.9 x 4.3 x 4.0 cm. Procedure Note Sancho Chaney MD - 02/20/2025 ULTRASOUND OF THE KIDNEYS AND URINARY BLADDER CLINICAL HISTORY: Renal mass, renal insufficiency TECHNIQUE: Multiple sonographic images obtained. COMPARISON: MRI brain 01/20/2024 FINDINGS: RIGHT KIDNEY: The right kidney measures 9.7 cm. There is normal parenchymal echotexture. There is no evidence for nephrolithiasis in the images obtained. There is no evidence of hydronephrosis in the images obtained. There is a 2.6 x 2.4 x 2.2 cm solid right renal mass. LEFT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
--- OUTSIDE RECORDS SUMMARY | 2025-04-13 18:42 | XMS_ITS | Clinical Summary ---
Author Organization [facility] Address [address] [place] [address] Care Team Providers Care Director Of Nuclear Medicine Name Role Phone David Ashley MD Primary Care Provider [phone] David Ashley MD Unavailable [phone] Allergies No known active allergies Medications amLODIPine (NORVASC) 5 MG tablet Take 1 tablet (5 mg total) by mouth daily. Active OMEprazole (PriLOSEC) 40 MG capsule Take 1 capsule (40 mg total) by mouth every morning before breakfast. Active calcium carbonate-vitami n D (OSCAL+D) 250 mg-3.125 mcg tablet Take 1 tablet by mouth every morning with breakfast. Active magnesium oxide 400 (240 Mg) MG Tab tablet Take 1 tablet (400 mg total) by mouth daily. Take 2 hours apart from other medications; take with food Active atorvastatin (LIPITOR) 20 MG tablet Take 1 tablet (20 mg total) by mouth daily. Active losartan-hydroCH LOROthiazide (HYZAAR) 100-12.5 MG per tablet Take 1 tablet by mouth daily. Active memantine (NAMENDA) 10 MG tablet Take 1 tablet (10 mg total) by mouth 2 (two) times a day. Active ipratropium (ATROVENT) 0.06 % nasal sprayIndications :Vasomotor rhinitis 2 sprays into each nostril 4 (four) times a day as needed for rhinitis. 15 mL 5 07/09/19 25 Active spacer for MDI (Aerochamber/Ashley atheRite/Ellipse ) DeviceIndication s:Chronic obstructive pulmonary disease, unspecified COPD type (HCC) Use as instructed 1 each 08/26/19 25 Active albuterol (PROVENTIL) (0.083%) 2.5 mg/3 mL nebulizer solutionIndicati ons:Chronic obstructive pulmonary disease, unspecified COPD type (HCC) Take 3 mL (2.5 mg total) by nebulization 4 times daily (every 6 hours) as needed for wheezing. 75 mL 3 08/26/19 25 Active Breztri Aerosphere 160-9-4.8 MCG/ACT Aerosol INHALE 2 PUFFS BY MOUTH ONCE DAILY NEEDED. 09/08/19 25 Active traZODone (DESYREL) 50 MG tablet 1 tablet (50 mg total). 10/24/19 25 Active azithromycin (ZITHROMAX) 500 MG tabletIndication s:Chronic obstructive pulmonary disease, unspecified COPD type (HCC) Take 1 tablet (500 mg total) by mouth 3 (three) times a week. 36 tablet 3 12/09/19 25 026 Active polyethylene glycol (COLYTE) 240 g solutionIndicati ons:Constipation , unspecified constipation type,History of colon polyps Take as directed for Colonoscopy/GI Procedure. See administration instructions. 4000 mL 12/16/19 25 Active Additional Information Patient not taking.Reported on 01/11/2025 Nebulizer MiscIndications: Chronic obstructive pulmonary disease, unspecified COPD type (HCC) Z6205-Sigxytyyl Compressor with A2378-kikphcvvrnzj on set, nonfiltered pneumatic nebulizer neb kit 1 per month AND A7013; Disposable Filter 1 per 2 mo. J45.909 Unspecified Asthma 12/30/19 25 Active Ensifentrine (Ohtuvayre) 3 MG/2.5ML SuspensionIndica tions:Chronic obstructive pulmonary disease, unspecified COPD type (HCC) Inhale 2.5 mL 2 times a day. 150 mL 11 12/30/19 25 Active Additional Information Patient not taking.Reported on 01/11/2025 ipratropium-albu terol (DUONEB) 0.5-2.5 mg/3 mL nebulizer solutionIndicati ons:Chronic obstructive pulmonary disease, unspecified COPD type (HCC) Take 3 mL by nebulization 4 times daily (every 6 hours) as needed for wheezing or shortness of breath. 90 mL 5 12/30/19 25 Active linaclotide (LINZESS) 145 MCG Cap capsuleIndicatio ns:Constipation, unspecified constipation type Take on an empty stomach at least 30 minutes prior to a meal at approximately the same time each day. 90 capsule 1 01/12/20 25 Active predniSONE (DELTASONE) 10 MG tabletIndication s:COPD with exacerbation (HCC) Take 40 mg (= 4 tablets) by mouth daily for 3 days, then 30 mg (= 3 tablets) daily for 3 days, then 20 mg (= 2 tablets) daily for 3 days, then 10 mg (= 1 tablet) daily for 3 days. Take with food. 30 tablet 03/11/20 25 Active doxycycline (VIBRAMYCIN) 100 MG capsuleIndicatio ns:COPD with exacerbation (HCC) Take 1 capsule (100 mg total) by mouth 2 (two) times a day. 10 capsule 03/11/20 25 025 Active Problems Problem Noted Date Diagnosed Date Constipation 12/08/2024 History of colon polyps 12/08/2024 Mixed simple and mucopurulent chronic bronchitis 07/09/2024 Encounters Date Type Department Care Team Description 02/23/2025 10:05 AM EDT Ancillary Procedure [facility] [address] [place] [address] Provider, File Room 02/23/2025 10:00 AM EDT Ancillary Procedure [facility] [address] [place] [phone] Provider, File Room 02/23/2025 9:55 AM EDT Ancillary Procedure [facility] [address] [place] [address] Provider, File Room 02/23/2025 9:50 AM EDT Ancillary Procedure [facility] [address] [place] [phone] Provider, File Room 02/08/2025 Scanned Document [facility] [address] [place] [address] Eliud Aaron MD 01/11/2025 2:30 PM EDT Office Visit [address] [place] [phone] Yee Jarvis DO Constipation, unspecified constipation type (Primary Dx); Gastroesophageal reflux disease with esophagitis, unspecified whether hemorrhage from Last 3 Months Immunizations Immunization Administration Dates Next Due DTaP, Unspecified 09/19/2010 Influenza, Quadrivalent (FLU AD) Adjuvanted Preservative Free IM 65 years and older 06/09/2021,06/16/2020 Influenza, Quadrivalent (FLU ARIX, AFLURIA, FLULAVAL, FLUZONE) Preservative Free IM 04/02/2017 Influenza, Unspecified 05/18/2003 Pneumococcal Conjugate 13-Valent 06/21/2015 Pneumococcal Polysaccharide 23-Valent 09/19/2010 Pneumococcal, Unspecified 09/19/2010 Td, Unspecified 05/02/1999 Tdap 09/19/2010 Zoster Vaccine Live/Attenuated (Zostavax) 2015 Zoster Vaccine Recombinant (Shingrix) 05/08/2022 Zoster,unspecified 08/23/2015 Family History Relation Name Status Comments Father Mother Social History Tobacco Use Types Packs/Day Years Used Date Smoking Tobacco: Former Cigarettes Smokeless Tobacco: Never Tobacco Cessation:Counseling Given: Not Answered Alcohol Use Standard Drinks/Week Comments Not Currently 0 (1 standard drink = 0.6 oz pur e alcohol) Sex and Gender Information Value Date Recorded Sex Assigned at Male 08/16/2024 11:32 AM EDT Legal Sex Male 6:30 PM EST Gender Identity Choose not to disclose 11:32 AM EDT Sexual Orientation Choose not to disclose 2024 11:32 AM EDT Last Filed Vital Signs Vital Sign Reading Time Taken Comments Blood Pressure 124/82 01/11/2025 2:28 PM EDT Pulse 70 01/11/2025 2:28 PM EDT Temperature 36.4 C (97.6 F) 12/07/2024 2:11 PM EDT Respiratory Rate - - Oxygen Saturation 98% 12/07/2024 2:11 PM EDT Inhaled Oxygen Concentration - - Weight 71.7 kg (158 lb) 01/11/2025 2:28 PM EDT Height 170.2 cm (5' 7 ) 01/11/2025 2:28 PM EDT Body Mass Index 24.75 01/11/2025 2:28 PM EDT Plan of Treatment Health Maintenance Due Date Last Done Comments Advance Care Planning 1945 Hepatitis C Virus Screening 1945 DXA Bone Density (Females,Ages 65 and older) 11/26/2011 Pneumococcal Vaccines 50+ (3 of 3 - PCV20 or PCV21) 06/21/2020 06/21/2015, 09/19/2010, 09/19/2010 DTaP/Tdap/Td Vaccines (3 - Td or Tdap) 09/19/2020 09/19/2010, 09/19/2010, 05/02/1999 RSV Vaccine 50 years and older and Patients (1 - 1-dose 75+ series) 2021 Zoster (Shingles) Vaccine (3 of 3) 07/03/2022 05/08/2022, 08/23/2015, 08/23/2015 Influenza Vaccine 12/31/2024 06/09/2021, , 04/02/2017, Additional history exists COVID-19 Vaccine ( - 2024- season) 2025 06/09/2021, 09/20/2020, 08/29/2020 Colonoscopy (Out of Age Range) 12/24/2029 12/24/2024 (Previously Completed) Hepatitis B Vaccines Aged Out No long er eligible based on patient's age to complete this topic Procedures Procedure Name Priority Date/Time Associated Diagnosis Comments CT CHEST WITHOUT CONTRAST Routine 02/23/2025 11:41 AM EDT CTA HEAD AND NECK W/O AND WITH CONTRAST Routine 02/23/2025 11:[address] CERVICAL SPINE W W/O CONTRAST Routine 02/23/2025 11:30 AM EDT US RETROPERITONEAL-COM PLETE Routine 02/23/2025 11:[address] HEAD ARCHIVE FOR REFERENCE ONLY Routine 02/23/2025 9:[address] CHEST ARCHIVE FOR REFERENCE ONLY Routine 02/23/2025 9:[address] SPINE ARCHIVE FOR REFERENCE ONLY Routine 02/23/2025 9:50 AM EDT AYAKA ARCHIVE FOR REFERENCE ONLY US Routine 02/23/2025 9:50 AM EDT from Last 3 Months Results * CT CHEST WITHOUT CONTRAST (02/23/2025 11:41 AM EDT) Anatomical Region Laterality Modality Other us Provider Not In System IMG LEGACY PROCEDURES Fin al Result * CTA Head and Neck W/O and With IV Contrast (02/23/2025 11:33 AM EDT) Anatomical Region Laterality Modality CTA Head and Neck Computed Tomog pat us Provider Not In System IMG CT ORDERABLES Final R esult * CT Cervical spine w w/o contrast (02/23/2025 11:30 AM EDT) Anatomical Region Laterality Modality C-spine Computed Tomogra phy us Provider Not In System IMG CT ORDERABLES Final R esult * US Retroperitoneal-Complete (02/23/2025 11:23 AM EDT) Anatomical Region Laterality Modality Abdomen Ultrasound us Provider Not In System IMG US ORDERABLES Final R esult * CT Head Archive for Reference Only (02/23/2025 9:50 AM EDT) [facility] 02/23/2025 9:50 AM EDT This study has been auto finalized and does not contain a result. us File Room Provider IMG DIGITIZE FILMS Final Resu lt Performing Organization Address [facility] de Phone Number P[place]OB[place] [phone] * CT Chest Archive for Reference Only (02/23/2025 9:50 AM EDT) Narrative [facility] 02/23/2025 9:50 AM EDT This study has been auto finalized and does not contain a result. us File Room Provider IMG DIGITIZE FILMS Final Resu lt Performing Organization Address [facility] Co de Phone Number [place] [phone] * CT Spine Archive for Reference Only (02/23/2025 9:50 AM EDT) Narrative [facility] 02/23/2025 9:50 AM EDT This study has been auto finalized and does not contain a result. us File Room Provider IMG DIGITIZE FILMS Final Resu lt Performing Organization Address [facility] Co de Phone Number JESÚS [phone] * AYAKA Archive for reference only US (02/23/2025 9:50 AM EDT) Narrative JES[facility]S - 02/23/2025 9:50 AM EDT This order has been auto-finalized and does not contain a result. us File Room Provider IMG DIGITIZE FILMS Final Resu lt Performing Organization Address [facility] Co de Phone Number JESÚS [phone] from Last 3 Months Insurance [place] MEDIC[place] Care Teams Director Of Nuclear Medicine Relationship Specialty Start Date End Date David Ashley MD [address] [place] [id number] PCP - General Internal Medicine 11/30/24 David Ashley MD [address] [place] [address] PCP - APNCT [employer] Attributed 03/02/25
--- OUTSIDE RECORDS SUMMARY | 2025-04-13 18:42 | XMS_ITS | Clinical Summary ---
Author Organization [facility] Address [address] [place] [address] Care Team Providers Care Lumber Tripper Name Role Phone David Ashley MD Primary Care Provider [phone] Allergies No known active allergies Medications Medication Sig Dispensed Refills Start Date End Date Status omeprazole (PRILOSEC) 40 MG capsule Take 1 capsule (40 mg total) by mouth daily. 0 06/05/2015 Active albuterol 108 (90 Base) MCG/ACT inhaler Inhale 2 puffs into the lungs every 6 (six) hours as needed. 0 10/29/2022 Active docusate sodium (Colace) 100 MG capsule Take 1 capsule (100 mg total) by mouth daily as needed for constipation. 30 capsule 2 11/23/2022 Active betamethasone valerate (VALISONE) 0.1 % cream APPLY TO AFFECTED AREA TOPICALLY EVERY DAY 45 g 0 12/06/2022 Active phenazopyridine (PYRIDIUM) 100 MG tablet TAKE 1 TABLET BY MOUTH 3 TIMES A DAY NEEDED FOR PAIN. 20 tablet 0 12/11/2022 Active Additional Information Patient not taking.Reason: Other, Reported on 03/24/2024 amLODIPine (NORVASC) tablet 5 mg Take 1 tablet (5 mg total) by mouth daily. 0 Active losartan-hydrochlo rothiazide (Hyzaar) 50-12.5 MG per tabletIndications: Essential hypertension Take 1 tablet by mouth daily. 90 tablet 3 08/07/2023 Active Budeson-Glycopyrro l-Formoterol (BREZTRI AEROSPHERE IN) Inhale into the lungs daily. 0 Active oxyCODONE (ROXICODONE) 5 MG immediate release tablet Take 1 tablet (5 mg total) by mouth every 4 (four) hours as needed for pain for up to 6 doses. 6 tablet 0 04/01/2024 Active docusate sodium (Colace) 100 MG capsule Take 1 capsule (100 mg total) by mouth 2 (two) times a day. 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 11/12/2022 Overview: Added automatically from request for surgery [id number] Acute kidney injury 11/12/2022 Overview: Added automatically from request for surgery [id number] Urinary retention 11/02/2022 Resolved Problems Problem Noted Date Diagnosed Date Resolved Date LEVI (acute kidney injury) 11/02/2022 Family History Medical History Relation Name Comments Breast cancer Neg Hx Nephrolithiasis Neg Hx Prostate cancer Neg Hx Social History Tobacco Use Types Packs/Day Years Used Date Smoking Tobacco: Former Cigarettes 1 53 Q uit: 07/2022 Passive Smoke Exposure: Past Smokeless Tobacco: Never Tobacco Cessation:Counseling Given: Not Answered Alcohol Use Standard Drinks/Week Comments Not Currently 0 (1 standard drink = 0.6 oz pur e alcohol) rarely Sex and Gender Information Value Date Recorded Sex Assigned at Male 09/12/2020 10:11 AM EDT Gender Identity Not on file Sexual Orientation Not on file Job Start Date Occupation Industry Not on file Not on file Not on file Last Filed Vital Signs Vital Sign Reading Time Taken Comments Blood Pressure 127/52 03/31/2024 7:39 AM EDT Pulse 97 03/31/2024 7:39 AM EDT Temperature 36.9 C (98.4 F) 03/31/2024 7:39 AM EDT Respiratory Rate 18 03/31/2024 7:39 AM EDT Oxygen Saturation 96% 03/31/2024 7:39 AM EDT Inhaled Oxygen Concentration - - Weight 68.9 kg (152 lb) 03/29/2024 10:11 PM EDT Height 171.5 cm (5' 7.5 ) 03/29/2024 10:11 PM ED T Body Mass Index 23.46 03/29/2024 10:11 PM EDT Plan of Treatment Health Maintenance Due Date Last Done Comments Hepatitis C Screening 1945 Lung Cancer Screening (Low Dose CT) 1945 Depression Screening 1958 Preventative Health Evaluation 1964 Tobacco Cessation Counseling 1964 Fall Risk Assessment 11/26/2011 Pneumococcal Vaccine (3 of 3 - PPSV23 or PCV20) 06/21/2020 06/21/2015, 09/19/2010, 09/19/2010 DTap / Tdap / Td (3 - Td or Tdap) 09/19/2020 09/19/2010, 09/19/2010, 05/02/1999 RSV Adult > 60+ Yrs or (1 - 1-dose 75+ series) 2021 Shingrix-Zoster Vaccine (2 o f 2) 07/03/2022 05/08/2022 COVID-19 Vaccine (4 - 2024-2 6 season) 2025 06/09/2021, 09/20/2020, 08/29/2020 Influenza Vaccine (#1) 2025 2, 06/16/2020, 04/02/2017 Hepatitis B Vaccines Aged Out No long er eligible based on patient's age to complete this topic RSV Ped < 20 months Aged Out No longe r eligible based on patient's age to complete this topic Medical Devices Implanted Type Area Lpn Per Diem Device Identifier Shelf Expiration Date Model / Serial / Lot Surgiflo Hemostatic Matrix [employer] [id number] - [id number] Implanted:Qty : 1 on 09/11/2022 by Deacon Torres MD at [facility] and Med Hemostatic Agent Anterior: Spine Cervical [employer] 04/01/2024 [id number] / / [id number] Surgiflo Hemostatic Matrix [employer] [id number] - [id number] Implanted:Qty : 1 on 03/29/2024 by Davin Lazar MD at [facility] and Med Hemostatic Agent Right: Kidney [employer]al[employer] 08/10/2025 2991 / / [id number] Vikos Cervical 14x14.5x6mm 7d Stry-Spin [id number] - [id number] Implanted:Qty : 1 on 09/11/2022 by Deacon Torres MD at [facility] and Med Anterior: Spine Cervical DARRIN SPINE 12/29/2024 [id number] / [id number] / Anterior Cervical Plate Constr 1 Level 22mm Stry-K2m [id number] - [id number] Implanted:Qty : 1 on 09/11/2022 by Deacon Torres MD at [facility] and Med Anterior: Spine Cervical DARRIN SPINE [id number] / / Screw Va Self-Start 4x14mm Stry-K2m [id number] - [id number] Implanted:Qty : 4 on 09/11/2022 by Deacon Torres MD at [facility] and Med Anterior: Spine Cervical DARRIN SPINE [id number] / / Advance Directives For more information, please contact: [phone] Documents on File Type Date Recorded Patient Internet Specialist Expl anation Advance Directive and Living Will 02/06/2018 9:55 AM Latest Code Status on File Code Status Date Activated Date Inactivated Comments Full Code 03/29/2024 2:07 PM 03/31/2024 9:23 PM Thi s code status was ascertained in the following way: discussion with patient . Code Status History Code Status Date Activated Date Inactivated Comments Full Code 11/22/2022 3:24 PM 11/23/2022 5:53 PM This code status was ascertained in the following way: discussion with patient . Full Code 11/22/2022 11:59 AM 11/22/2022 3:24 PM This code status was ascertained in the following way: discussion with patient . Full Code 11/02/2022 11:37 AM 11/03/2022 6:03 PM Full Code 09/11/2022 10:17 AM 09/12/2022 6:18 PM This code status was ascertained in the following way: discussion with patient . Care Teams Lumber Tripper Relationship Specialty Start Date End Date David Ashley MD [address] [place] [address] PCP - General Internal Medicine 07/14/15
--- OUTSIDE RECORDS SUMMARY | 2025-04-13 18:42 | XMS_ITS | Encounter Summary ---
Author Organization [facility] Address [address] [place] [address] Care Team Providers Care Tile Mechanic Helper Name Role Phone David Ashley MD Unavailable [phone] David Ashley MD Primary Care Provider [phone] David Ashley MD Unavailable [phone] Encounter Details Date Type Department Care Team (Late st Contact Info) Description 12/31/2024 Scanned Document [facility] [place] [address] [place] [address] Eliud Aaron MD [address] [place] [address] Social History Tobacco Use Types Packs/Day Years Used Date Smoking Tobacco: Former Cigarettes Smokeless Tobacco: Never Alcohol Use Standard Drinks/Week Comments Not Currently 0 (1 standard drink = 0.6 oz pur e alcohol) Sex and Gender Information Value Date Recorded Sex Assigned at Male 08/16/2024 11:32 AM EDT Legal Sex Male 6:30 PM EST Gender Identity Choose not to disclose 11:32 AM EDT Sexual Orientation Choose not to disclose 2024 11:32 AM EDT documented as of this encounter Plan of Treatment Not on file documented as of this encounter Visit Diagnoses Not on filedocumented in this encounter Care Teams Tile Mechanic Helper Relationship Specialty Start Date End Date David Ashley MD [address] [place] [address] PCP - APNCT [employer] Medicare Attributed 06/02/23 01/30/25 David Ashley MD [address] [place] [address] PCP - General Internal Medicine 11/30/24 David Ashley MD [address] [place] [address] PCP - APNCT [employer] Attributed 03/02/25 documented as of this encounter
--- OUTSIDE RECORDS SUMMARY | 2025-04-13 18:42 | XMS_ITS | Data Portability ---
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 swallowing except for an occasional medication. Prior Visit: 08.30.22 76-year-old male with approximately 5 months of progressive bilateral upper extremity paresthesias, discoordintion, arm weakness, leg weakness and difficulty walking.He had a grossly abnormal a physical exam.He has weakness of his left tricep. He has a myelopathic gait. He has brisk upper extremity greater than lower extremity reflexes. He has a brisk Bonita sign on the left and sustained clonus on the left. 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 He will follow-up with Dr. Torres to review his MRI and to discuss treatment options.History of Present IllnessSammy is a 76-year-old male with COPD. He presents today for evaluation of his cervical spine.He notes that he started to get progressive neck pain around March 05, 2022 without injury or precipitating event. With time his neck pain improved but he developed bilateral arm paresthesias from his shoulder into his hands. He notes progressive bilateral arm weakness and difficulty with coordination. He reports he is dropping items his hands are clumsy and he feels off balance. He also notes bilateral leg weakness. He describes this as trouble with his legs he feels that his feet are tripping on the floor.He does not have saddle anesthesia.He has chronic neck urinary symptoms related to an enlarged prostate that he is having a procedure on. He does not bowel incontinence.Treatments today include physical therapy, home exercise, other modalities, rest Deacon Torers MD [address], [place], [address], [place] [facility] 09/05/2022 13:48:48 09/23/2022 text/html HPI:76-year-old male status post C3-4 instrumented ACDF with allograft for progressive cervical myelopathy performed on September 11, 2022. He is doing well without complication but is disappointed that he has not noted any immediate improvement of his symptoms. This was explained preoperatively that it could result in his failure to progress in excellent result improvement. We are uncertain whether or not he will improve as he is only 2 weeks postop. He is given abundant reassurance. 4.6.23 HPI:76-year-old male with 5 months of progressive myelopathic symptoms returns to review his MRI.He has a grossly abnormal physical examination with left triceps weakness and myelopathic gait. He is hyperreflexic positive Bonita sign on the left and sustained clonus on the left. He has a positive Romberg's.Today he relates that he is getting worse at a nearly weekly basis. He is tingling and weakness in his arms and legs. He feels like his whole body is tingling. He is dropping items. His gait is worsening. He has difficulty walking in the dark.He has no arm pain but his arms tingle.He enjoys singing and playing. [employer] but would be willing to sacrifice this for surgical intervention. He is not blind in either eye and has no difficulty swallowing except for an occasional medication.Prior Visit: Deacon Torres MD [address], [place], [address], [place] [facility] 09/23/2022 10:02:19 12/23/2022 text/html Prior Visit:post-op, post op 09/11/2022 [facility]-ACDF C3-4Performed by Deacon Torres MD, Orthopedic Surgery, We discussed the situation. He is doing well. He has had no complications from the C3-4 ACDF on 09/11/2024.I have explained again that a good result is absence of worsening and excellent result is improvement. He has been myelopathic for some time and is 76 years old. He has multilevel spondylosis.If he is to improve we will likely take months. We discussed options. He will return in 3 months. If at that time he is not making any neurologic improvement we will obtain a new MRI to assess for incomplete decompression or significant untreated pathology. We decided to limit her surgical intervention on the first go around due to the broad extent of his spondylosis. We focused on the most significant level.history of cervical spine fusion09/11/2022 C 3-4 ACDFcervical myelopathycervical spondylosisOrder xr cerv MD [address], [place], [address], [place] [facility] 12/23/2022 09:50:06 02/17/2023 text/html Prior Visit:follow up, [id number] FU for neck POST OPPerformed by Deacon Torres MD, Orthopedic Surgery, Given that he is shown less improvement that we had hoped and he has a curious finding on his cervical spine x-ray we obtained a new MRI. I reviewed the x-ray with him. I suspect this is an issue with a spur and parallax but I cannot completely exclude the notion that he has superior endplate fracture of C4.We will give this some time to settle. We will get the MRI in about 3 weeks he will follow-up shortly after that.history of cervical spine fusion09/11/2022 C3-4 ACDFOrder xr cervical spine, 4 or 5 view, [id number] myelopathyWill order MRI, cervical spin MD [address], [place], [address], [place] [facility] 02/17/2023 14:03:48 02/21/2025 text/html ROS as noted in the HPI [address], [place], [address], [place] - [facility] 02/21/2025 11:10:24
--- OUTSIDE RECORDS SUMMARY | 2025-04-13 18:42 | XMS_ITS | Encounter Summary ---
Author Organization [facility] Address [address] [place] [address] Care Team Providers Care Strategic Debriefing Officer Name Role Phone David Ashley MD Unavailable [phone] Pcp, No Primary Care Provider Unavailabl e David Ashley MD Primary Care Provider [phone] David Ashley MD Unavailable [phone] Encounter Details Date Type Department Care Team (Late st Contact Info) Description 05/06/2024 Scanned Document [facility] [place] [address] [address] Ezequiel Urbina MD [address] [id number] Social History Tobacco Use Types Packs/Day Years Used Date Smoking Tobacco: Never Assessed Sex and Gender Information Value Date Recorded [...] on filedocumented in this encounter Care Teams Strategic Debriefing Officer Relationship Specialty Start Date End Date David Ashley MD [address] [place] [address] PCP - APNCT [employer] Attributed 06/02/23 01/30/25 Pcp, No PCP - General General Medicine 06/07/24 11/29/24 David Ashley MD [address] [place], [place] [address] PCP - General Internal Medicine 11/30/24 David Ashley MD [address] [place], [place] [address] PCP - APNCT [employer] Attributed 03/02/25 documented as of this encounter
--- OUTSIDE RECORDS SUMMARY | 2025-04-13 18:43 | XMS_ITS | Encounter Summary ---
Author Organization [facility] Address [address] [place] [address] Care Team Providers Care Manager Of Training Name Role Phone David Ashley MD Unavailable [phone] Pcp, No Primary Care Provider Unavailabl e David Ashely MD Primary Care Provider [phone] David Ashley MD Unavailable [phone] Encounter Details Date Type Department Care Team (Late st Contact Info) Description 11/24/2024 Scanned Document [facility] Pul[facility] [address] [phone] Eliud Aaron MD [address] [place] [id number] Social History Tobacco Use Types Packs/Day Years Used Date Smoking Tobacco: Former Cigarettes Smokeless Tobacco: Never Sex and Gender Information Value Date Recorded [...] on filedocumented in this encounter Care Teams Manager Of Training Relationship Specialty Start Date End Date David Ashley MD [address] [place] [address] PCP - APNCT [employer] Attributed 06/02/23 01/30/25 Pcp, No PCP - General General Medicine 06/07/24 11/29/24 David Ashley MD [address] [place] [address] PCP - General Internal Medicine 11/30/24 David Ashley MD [address] [place] [address] PCP - APNCT [employer] Attributed 03/02/25 documented as of this encounter
--- OUTSIDE RECORDS SUMMARY | 2025-04-13 18:43 | XMS_ITS | Encounter Summary ---
Author Organization [facility] Address [address] [place] [address] Care Team Providers Care Adhesive Bandage Machine Operator Name Role Phone David Ashley MD Primary Care Provider [phone] David Ashley MD Unavailable [phone] Encounter Details Date Type Department Care Team (Late st Contact Info) Description 02/08/2025 Scanned Document [facility] Pulmonary [place] [address] [place] [address] Eliud Aaron MD [address] [place] [address] Social History Tobacco Use Types Packs/Day Years [...] on filedocumented in this encounter Care Teams Adhesive Bandage Machine Operator Relationship Specialty Start Date End Date David Ashley MD [address] [place] [address] PCP - General Internal Medicine 11/30/24 David Ashley MD [address] [place] [address] PCP - APNCT [employer] Attributed 03/02/25 documented as of this encounter
== END 2025-04-13 16:01 | disposition home or self-care (01) ==
LOC: HO.HKAE 15:37
PROVIDERS: PCP Internal Medicine; Visit Provider Internal Medicine Hypertension Specialist
DX: N18.9 Chronic kidney disease, unspecified (principal)
CPT/HCPCS: 99204

== ENCOUNTER → 2025-04-13 15:36 | Outpatient (BNVA) | payer MEDICARE, SELFPAY | PROVIDERS: PCP Internal Medicine; Visit Provider Internal Medicine Hypertension Specialist | DX: I12.9 Hypertensive chronic kidney disease with stage 1 through stage 4 chronic kidney disease, or unspecified chronic kidney disease (principal); N18.9 Chronic kidney disease, unspecified; Z87.891 Personal history of nicotine dependence; E87.5 Hyperkalemia | CPT/HCPCS: 99202 ==

== ENCOUNTER 2025-04-27 13:25 | Outpatient (AMB) | payer MEDICARE, SELFPAY ==
[2025-04-27 13:27] VITALS: BP 128/60; PULSE 88; O2SAT 97; BMI 23.2
--- NOTE | 2025-04-27 13:27 | HO.NEPHOV_ITS ---
Vital Signs 04/27/25 13:27 Height 5 ft 7 in Weight 148 lb BMI 23.2 BP 128/60 Blood Pressure Location Rt brachial Position Sitting Pulse 88 Pulse Source Pulse Oximeter Pulse Oximetry (%) 97 Oxygen Delivery Method Room Air Intake Visit Reasons: 2wk f/u w/labs Breed To Wean Production Technician Required: No Allergies Seasonal Allergies Allergy (Unknown, Verified 04/27/25 13:28) Unknown Medication List - Last Reconciled 04/27/25 by Gurpreet Dick MD albuterol sulfate 90 mcg/actuation 2 puffs inhalation Q6H PRN amlodipine 5 mg PO DAILY tnrypdmsta-frvvdzvg-prnitcsdce 160-9-4.8 mcg/actuation (Breztri Aerosphere) 2 inhalations inhalation DAILY PRN linaclotide (Linzess) 145 mcg PO DAILY losartan-hydrochlorothiazide 50-12.5 mg 1 tab PO DAILY memantine 10 mg PO DAILY omeprazole 40 mg PO QAM trazodone 50 mg PO BEDTIME HPI Comments Details: The patient is a 79-year-old male presenting with decreased kidney function and associated symptoms. He has a history of partial nephrectomy on the right kidney due to a spot identified during a CAT scan, which was removed via robotic surgery. The left kidney was not affected, and the surgery occurred several years ago. The patient has a history of hypertension for at least five years, managed with losartan hydrochlorothiazide and amlodipine. The patient underwent prostate surgery approximately three years ago, which initially involved catheterization for about a week. He reports occasional urinary incontinence and nocturia, waking once per night to urinate. The patient experiences constipation, managed with Linzess, and reports needing to force bowel movements. He has a history of smoking, having quit four years ago after smoking a pack a day. 04/27/25 The patient is a 79 year old individual presenting for a follow-up visit for management of chronic kidney disease. The patient's kidney function was 39 at the initial visit and improved to 49 on the most recent labs from April 15. Losartan was previously stopped due to hyperkalemia, and the patient confirms not taking it . Following dietary recommendations to avoid bananas and oranges, the patient's potassium level has returned to the normal range. An ultrasound of the kidneys was normal. A CT scan was performed last week for the patient's urologist, Dr. Ashley, and results are pending. The patient reports urinary hesitancy, stating a need to wait for 15 seconds before urination can begin, which has been attributed to the prostate. The patient takes amlodipine for blood pressure. The patient also has a history of sciatica, which has resolved. The patient reports difficulty walking up and down stairs and was prescribed prednisone and an antibiotic by a dental resident. A follow-up visit with the dental resident is scheduled for June. [facility] Medical History (Updated 04/13/25 @ 16:11 by Gurpreet Dick MD) Hypomagnesemia Hypocalcemia Mixed hyperlipidemia MCI (mild cognitive impairment) GERD (gastroesophageal reflux disease) CKD (chronic kidney disease) Cancer of right kidney Kidney malignancy Muscle spasm Hyperlipidemia Disease of spinal cord, unspecified Hypertension Reeves catheter in place on admission COPD (chronic obstructive pulmonary disease) Hematuria Anemia Surgical History History of prostate surgery (~2022) Physical Exam Vital Signs: Last Vital Signs Pulse 88 04/27/25 13:27 BP 128/60 04/27/25 13:27 Pulse Ox 97 04/27/25 13:27 Oxygen Delivery Method Room Air 04/27/25 13:27 BMI result Body Mass Index 23.2 Comfortable Neck supple no JVD. Lungs entry equal no rales. Heart S1-S2 heard no gallop or rub. Abdomen soft nontender. Neuro alert awake oriented. No asterixis. Extremities no edema. Assessment & Plan Assessment & Plan (1) CKD (chronic kidney disease): Code(s): N18.9 - Chronic kidney disease, unspecified Category: Medical Plan 1. Chronic Kidney Disease Most likely has hypertensive nephrosclerosis. No evidence of glomerular nephritis/ interstitial disease No obstruction based on USG There was a component of LEVI due to hypoperfusion After discontinuing losartan/HCT , renal function has improved and hyperkalemia stands corrected 2. Hypertension Maintain blood pressure less than 130/80 Stay on low-sodium diet BP is aceptable. Going to [place] for few weeks Follow up in 3-4 months Orders: Orders Basic Metabolic Panel 4 Months N18.9 - Chronic kidney disease, unspecified Complete Blood Count no Diff 4 Months N18.9 - Chronic kidney disease, unspecified Coding Level of Care Code Est Pt Level 4 (83232) Diagnoses CKD (chronic kidney disease) N18.9
--- OUTSIDE RECORDS SUMMARY | 2025-04-27 16:32 | XMS_ITS | Clinical Summary ---
Author Organization [facility] Address [address] [place] [address] Care Team Providers Care Insurance Plan Specialist Name Role Phone David Ashley MD Primary Care Provider [phone] David Ashley MD Unavailable [phone] Allergies No known active allergies Medications [...] obstructive pulmonary disease, unspecified COPD type (HCC) [id number] Compressor with W6556-mhnpxapbwal ion set, nonfiltered pneumatic nebulizer neb kit 1 [...] 3 days. Take with food. 30 tablet 04/25/20 25 Active doxycycline (VIBRA-TABS) 100 MG tabletIndication s:COPD with exacerbation (HCC) Take 1 tablet (100 mg total) by mouth 2 (two) times a day. 10 tablet 04/25/20 25 025 Active predniSONE (DELTASONE) 10 MG tabletIndication s:COPD with exacerbation (HCC) Take 40 mg (= 4 tablets) by mouth daily for 3 days, then 30 mg (= 3 tablets) daily for 3 days, then 20 mg (= 2 tablets) daily for 3 days, then 10 mg (= 1 tablet) daily for 3 days. Take with food. 30 tablet 03/11/20 25 025 Discontin ued(Reord er) Active Problems Problem Noted Date Diagnosed Date Constipation 12/08/2024 History of colon polyps 12/08/2024 Mixed simple and mucopurulent chronic bronchitis 07/09/2024 Encounters Date Type Department Care Team Description 02/23/2025 10:05 AM EDT Ancillary Procedure [facility] Radiology [address] [place] [address] Provider, File Room 02/23/2025 10:00 AM EDT Ancillary Procedure [facility] [address] [place] [address] Provider, File Room 02/23/2025 9:55 AM EDT Ancillary Procedure [facility] [address] [place] [address] Provider, File Room 02/23/2025 9:50 AM EDT Ancillary Procedure [facility] [address] [place] [phone] Provider, File Room 02/08/2025 Scanned Document [facility] Pulmonary [address] [place] [phone] Eliud Aaron MD from Last 3 Months Immunizations Immunization Administration [...] 04/02/2017, Additional history exists COVID-19 Vaccine ( season) 2025 06/09/2021, 09/20/2020, 08/29/2020 Colonoscopy (Out [...] Reference Only (02/23/2025 9:50 AM EDT) Narrative [facility] 02/23/2025 9:50 AM EDT This study has been auto finalized and does not contain a result. us File Room Provider IMG DIGITIZE FILMS Final Resu lt Performing Organization Address [facility] Co de Phone Number JESÚS [phone] * CT Chest Archive for Reference Only (02/23/2025 9:50 AM EDT) Narrative [facility] - 02/23/2025 9:50 AM EDT This study has been auto finalized and does not contain a result. us File Room Provider IMG DIGITIZE FILMS Final Resu lt Performing Organization Address [facility] Co de Phone Number LYNCO [phone] * CT Spine Archive for Reference Only (02/23/2025 9:50 AM EDT) Narrative [facility] 02/23/2025 9:50 AM EDT This study has been auto finalized and does not contain a result. us File Room Provider IMG DIGITIZE FILMS Final Resu lt Performing Organization Address [facility] Co de Phone Number JESÚS [phone] * [facility] Archive for reference only [place] (02/23/2025 9:50 AM EDT) Narrative JESÚS - 02/23/2025 9:50 AM EDT This order has been auto-finalized and does not contain a result. us File Room Provider IMG DIGITIZE FILMS Final Resu lt Performing Organization Address [facility] de Phone Number JESÚS [phone] from Last 3 Months Insurance [employer] MED[employer]ARE [place] - [place] Member Subscriber Plan / Payer (Ef fective 2024-Present) Name:Rafael Garcia Relation to Subscriber:Self Name:Rafael Garcia Payer ID:Not on file Type:Not on file Address: [place] [id number] Care Teams Insurance Plan Specialist Relationship Specialty Start Date End Date David Ashley MD [address] [place] [address] PCP - General Internal Medicine 11/30/24 David Ashley MD [address] [place] [address] PCP - APNCT [employer] Attributed 03/02/25
--- OUTSIDE RECORDS SUMMARY | 2025-04-27 16:32 | XMS_ITS | Encounter Summary ---
Author Organization [facility] Address [address] [place] [address] Care Team Providers Care Assistant Plant Controller Name Role Phone David Ashley MD Unavailable [phone] David Ashley MD Primary Care Provider [phone] David Ashley MD Unavailable [phone] Encounter Details Date Type Department Care Team (Late st Contact Info) Description 12/31/2024 Scanned Document [facility] Pulmonary [place] [address] [place] [address] Eliud Aaron MD [address] [place] [address] Social History Tobacco Use Types Packs/Day Years [...] on filedocumented in this encounter Care Teams Assistant Plant Controller Relationship Specialty Start Date End Date David Ashley MD [address] [place] [address] PCP - APNCT [place] Medicare Attributed 06/02/23 01/30/25 David Ashley MD [address] [place] [address] PCP - General Internal Medicine 11/30/24 David Ashley MD [address] [place] [address] PCP - APNCT [employer] Attributed 03/02/25 documented as of this encounter
--- OUTSIDE RECORDS SUMMARY | 2025-04-27 16:32 | XMS_ITS | Continuity of Care Document ---
Author Organization [place] [facility] Denice Siegel [place] Address [address] [place] [address] Care Team Providers Care Inserting Machine Operator Name Role Phone FRANCISCO SARABIA Primary Care Provider FRANCISCO SARABIA Referring Provider [phone] FRANCISCO SARABIA Primary Care Provider Assessment Encounter Date Assessment Date Assessment LastModified by Organization Details LastModified Time 02/21/2025 02/21/2025 77-year-old male status post C3-C4 [...] abduction bilaterally. Non-tender, no palpable masses bilaterally. District Sales Representative strength strong and equal bilaterally. Normal tone [...] Details Last Modified Time Details Appointments None record ed. Lab None record ed. Referral None record ed. Procedures None record ed. Surgeries None record ed. Imaging None record ed. Medication Orders None record ed. Patient TargetsNo targets recorded. Patient InstructionsNo instructions recorded. Reason for Referral None Reported. Problems Name Problem SNOMED Code Status Onset Date Resolution Date Notes Provider Name and Address Organization Details Recorded Time Problem 10926397 Active No known active problems Not Available [facility] 5 00:34:40 Cervical myelopath y 225033999 Active [address], [place], [address] , [place] [facility] 3 18:03:53 Weakness of left arm 92833066260 593253 Active 2022 ROMINA LECHUGA PA-C [address], [place], [address] , [place] [facility] 3 18:04:22 Cervical spondylos is 385294579 Active 2022 ROMINA LECHUGA PA-C [address], [place], [address] , [place] [facility] 3 18:04:24 Retention of urine 318205579 Active 2022 Urinary retention Not Available [facility] 5 00:34:38 Acute kidney injury 05099312 Active 2022 Acute kidney injury - Overview: Formattin g of this note might be different from the original. Added automatic ally from request for surgery [id number] Not Available [facility] 5 00:34:39 Benign prostatic hyperplas ia with outflow obstructi on 355211882 Active 2022 BPH with obstructi on/lower urinary tract symptoms - Overview: Formattin g of this note might be different from the original. Added automatic ally from request for surgery [id number] B PH with urinary obstructi on Not Available [facility] 5 00:34:40 Spinal stenosis in cervical region 36052880 Active 2022 Deacon Torres MD [address], [place], [address] , [place] [facility] 3 14:00:45 Essential hypertens ion 35864641 Active 2023 Essential hypertens ion Not Available [facility] 5 00:34:39 Mixed hyperlipi demia 209872393 Active 2023 Mixed hyperlipi demia Not Available [facility] 5 00:34:39 Renal mass 610208885 Active 2023 Renal mass Not Available [facility] 5 00:34:38 Problem Notes None recorded. Medical Equipment None Reported. Allergies Allergen ID Allergen Name Allergen Category Reaction Reaction Severity Criticality Documentation Date Start Date Code Code System Note Provider Name and Address Organization Details Recorded Time 1315 tamsulosi n medicatio n Not available Not available Not available 08/30/2022 73909 RxNorm Karishma Charles fajardo, [place] [facility] 3 13:49:13 1316 omeprazol e medicatio n Not available Not available Not available 08/30/2022 7646 RxNorm Karishma Adriannejorge i null, [place] [facility] 3 13:49:25 Medications Name Sig Start [...] Not Available Not Available No t Available [facility] spacer USE INSTRUCTE D active Not Available Not Available No t Available Linzess 145 mcg capsule PLEASE SEE ATTACHED FOR DETAILED DIRECTION S active Not Available Not Available No t Available Spiriva Respimat 2.5 mcg/actuati on solution for inhalation INAHLE 1 PUFF BY MOUTH ONCE DAILY active Not Available Not Available No t Available Trelejordy Ellipta 100 mcg-62.5 mcg-25 mcg powder for [...] t Available Vitals Date Recorded Body height Provider Name an d Address Organization Details Last Updated DateTime 02/21/2025 [address] [place] [facility], 02/21/2025 10:51:37 Social History None recorded. Functional Status Question [...] ICD10 Code Diagnosis IMO Codes Diagnosis Note [id number] ROSI YIP [place] [address] [place] [address] 02/21/2025 10:23:41 02/21/2025 11:00:08 Neck pain 70319194 M54.2 31900 History of cervical spine fusion 6526012421 101 Z98.1 238146 C3-C4 instrument ed ACDF with allograft on 09/11/2022, [facility] Concerns Section Related Observation LastModified by Organization Detai ls LastModified Time None Recorded Concern Status LastModified by Organization Details LastModified Time None Recorded Payers Encounter Date Sequence Insurance Name Policy Number Policy Dsouza Covered Member ID Dsouza Member ID Guarantor Name 02/21/[address] [facility] (MEDICARE REPLACEMENT/A DVANTAGE - HMO) [id number] Rafael Garcia [id number] Rafael Garcia Notes Date Note Type Note Provider Name and Address Organization Details Recorded Time 02/21/2025 text/html ROS as noted in the HPI GARCIA EWING PA-C [address], [place], [address], [place] [facility], 02/21/2025 11:10:24
--- OUTSIDE RECORDS SUMMARY | 2025-04-27 16:32 | XMS_ITS | Data Portability ---
Author Organization [place] [facility] Denice Siegel [place]ONE [place] Address [address] [place] [address] Care Team Providers Care Incoming Freight Clerk Name Role Phone FRANCISCO SARABIA Primary Care Provider FRANCISCO SARABIA Referring Provider [phone] FRANCISCO SARABIA Primary Care Provider Assessment Encounter [...] abduction bilaterally. Non-tender, no palpable masses bilaterally. Regional Education Manager strength strong and equal bilaterally. Normal tone [...] superior endplate fracture of C4 2022 023 [email or web address] Not available 3 14:00:15 XR, cervical spine, 4 or 5 view 2022 023 [email or web address] [facility], [address], [address], [place], [address], 3 12:00:02 XR, cervical spine, 2 or 3 view 2022 023 [email or web address] [facility], [address], [address], [place], [address], 12:58:03 MRI, cervical spine, w/o contrast - progressive myelopathy, evaluate for cord compression /abnormalit y 2022 023 [email or web address] Not available 15:22:50 Medication Orders None recorded. Patient TargetsNo targets recorded. Patient Instructions Encounter Date Encounter Id Patient Instructions Last Modified By Organization Details Last Modified Time 09/05/2022 [id number] We had an extend ed conversation about [...] the cervical spine were obtained in the [place] office today. There is an instrumented ACDF [...] contr ast No observ ation record ed. [place] [id number] [facility] ([facility] [address], [place], [address], 09/02/2022 18:01:35 01/17/20 23 01/15/2023 MRI, cervi ghanshyam spine , w/o contr ast No observ ation record ed. [facility] [address], [place], [address], 01/17/2023 16:51:14 Result Notes None recorded. Problems Name Problem SNOMED Code Status Onset Date Resolution Date Notes Provider Name and Address Organization Details Recorded Time Problem 15900616 Active No known active problems Not Available [facility] 00:34:40 Cervical myelopath y 082503277 Active 2022 ROMINA LECHUGA PA-C [address], [place], [address] , [place] [facility] 3 18:03:53 Weakness of left arm 25963566308 600087 Active 2022 ROMINA LECHUGA PA-C [address], [place], [address] , [place] [facility] 3 18:04:22 Cervical spondylos is 625306934 Active 2022 ROMINA LECHUGA PA-C [address], [place], [address] , [place] [facility] 3 18:04:24 Retention of urine 979026007 Active 2022 Urinary retention Not Available [facility] 5 00:34:38 Acute kidney injury 53639478 Active 2022 Acute kidney injury - Overview: Formattin g of this note might be different from the original. 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 Added automatic ally from request for surgery [id number] B PH with urinary obstructi on Not Available [facility] 5 00:34:40 Spinal stenosis in cervical region 37747850 Active 2022 Deacon Torres MD [address], [place], [address] , [place] [facility] 3 14:00:45 Essential hypertens ion 32917846 Active 2023 Essential hypertens ion Not Available [facility] 5 00:34:39 Mixed hyperlipi demia 388248590 Active 2023 Mixed hyperlipi demia Not Available [facility] 5 00:34:39 Renal mass 707344118 Active 2023 Renal mass Not Available [facility] 5 00:34:38 Problem Notes None recorded. Medical Equipment None Reported. Allergies Allergen ID Allergen Name Allergen Category Reaction Reaction Severity Criticality Documentation Date Start Date Code Code System Note Provider Name and Address Organization Details Recorded Time 1315 tamsulosi n medicatio n Not available Not available Not available 08/30/2022 44733 RxNorm Karishma [place], [place] [facility] 3 13:49:13 1316 omeprazol e medicatio n Not available Not available Not available 08/30/2022 7646 RxNorm Karishma [place] null, [place] [facility] 3 13:49:25 Medications Name Sig Start [...] Not Available No t Available Amara Burnette [facility] spacer USE INSTRUCTE D active Not Available [...] Updated DateTime 09/05/2022 167.64 cm 24.7 kg/m2 90216.63 g Mendy Lopes [facility] 09/05/2022 09:12:55 Date Recorded Body height Provider Name an d Address Organization Details Last Updated DateTime 09/23/2022 167.64 cm Mendy Lopes [facility] 09/23/2022 09:42:55 Date Recorded Body height Body mass index (BMI) Body weight Provider Name and Address Organization Details Last Updated DateTime 12/23/2022 167.64 cm 23.1 kg/m2 13299.71 g Aleksandra Mathew [place] [facility] 12/23/2022 08:57:58 Date Recorded Body height Body mass index (BMI) Body weight Provider Name and Address Organization Details Last Updated DateTime 02/17/2023 167.64 cm 23.1 kg/m2 [address]286.[address] [place] [facility] 02/17/2023 13:39:15 Date Recorded Body height Provider Name an d Address Organization Details Last Updated DateTime 02/21/2025 167.[address] [place] [facility] 02/21/2025 10:51:37 Date Recorded Body height Body weight Body mass index (BMI) Provider Name and Address Organization Details Last Updated DateTime 03/30/2024 171.5 cm 66534 g 23.46 kg/m2 Not Available [facility] 02/22/2025 01:04:24 Date Recorded Heart rate Respiratory rate Oxygen saturation Body temperature Systolic And Diastolic Provider Name and Address Organization Details Last Updated DateTime 97 /min 18 /min 96 % 98.402 [degF] 127/52 mm[Hg] Not Available [facility] 01:04:24 Social History None recorded. Functional [...] IMO Codes Diagnosis Note [id number] ROSI THOMAS [address] [place] [address] 08/30/2022 13:35:15 08/30/2022 14:30:55 Cervical spondylosis 711730177 M47.892 G99.2 R26.2 Cervical myelopathy 2025 82334 G95.9 Weakness of left arm 166 1717553 3475198 M62.81 [id number] MD VAL Aquino [address] [place] [address] [place] [address] 09/05/2022 08:28:50 09/05/2022 09:38:23 Cervical myelopathy 256302080 G95.9 Cervical spondylosis 387 940282 M47.892 G99.2 R26.2 6629 Deacon Torres MD [facility] [address] [place] [address] 09/23/2022 08:58:41 09/23/2022 10:15:53 Cervical spondylosis 193391224 M47.892 History of cervical spine fusion 3635646359 101 Z98.1 09/11/2022 C 3-4 ACDF Cervical myelopathy 2025 40673 G95.9 [id number] Deacon Torres MD [facility] [address] [place] [address] 12/23/2022 08:43:22 12/23/2022 09:37:17 History of cervical spine fusion 1484097500 101 Z98.1 09/11/2022 C 3-4 ACDF Cervical myelopathy 2025 87187 G95.9 [id number] Deacon Torres MD [facility] [address] [place] [address] 02/17/2023 13:03:50 02/17/2023 14:03:43 Cervical myelopathy 142089030 G95.9 Spinal chintan nosis in cervical region 00379745 M48.02 [id number] GARCIA EWING PA-C [address] [place] [address] 02/21/2025 10:23:41 02/21/2025 11:00:08 Neck pain 34478257 M54.2 25809 History of cervical spine fusion 9605688490 101 Z98.1 641719 C3-C4 instrument ed ACDF with allograft on 09/11/2022, [facility] Concerns Section Related Observation LastModified by Organization Detai ls LastModified Time None Recorded Concern Status LastModified by Organization Details LastModified Time None Recorded Advance Directives Directive None Recorded Payers Insurance Date Sequence Insurance Name Policy Number Policy Dsouza Covered Member ID Dsouza Member ID Guarantor Name 02/21/2025 1 [facility] (MEDICARE REPLACEMENT/A DVANTAGE - HMO) [id number] Rafael Garcia [id number] Rafael Guidry Listro Notes Date Note Type Note Provider [...] his arms tingle.He enjoys singing and playing. [employer] but would be willing to sacrifice this [...] and to discuss treatment options.History of Present IllnessAllbrayden is a 76-year-old male with COPD. He [...] therapy, home exercise, other modalities, rest Deacon Torres MD [address], [place], [address], [facility] 09/05/2022 13:48:48 09/23/2022 text/html HPI:76-year-old male [...] his arms tingle.He enjoys singing and playing. SyMynd but would be willing to sacrifice this for surgical intervention. He is not blind in either eye and has no difficulty swallowing except for an occasional medication.Prior Visit: MD [address], [place], [address], [place] [facility] 09/23/2022 10:02:19 12/23/2022 text/html Prior Visit:post-op, post op 09/11/[address] [facility] C3-4Performed by Deacon Torres MD, Orthopedic [...] C 3-4 ACDFcervical myelopathycervical spondylosisOrder xr cerv Deacon Torres MD [address], [place], [address], [place] [facility] 12/23/2022 09:50:06 02/17/2023 text/html Prior Visit:follow up, [id number] FU for neck POST OPPerformed by Deacon [...] xr cervical spine, 4 or 5 view, [id number] myelopathyWill order MRI, cervical spin Deacon Torres MD [address], [place], [address], [place] [facility] 02/17/2023 14:03:48 02/21/2025 text/html ROS as noted in the HPI REX EWING PA-C [address], [place], [address], [place] [facility] 02/21/2025 11:10:24
--- OUTSIDE RECORDS SUMMARY | 2025-04-27 16:33 | XMS_ITS | Encounter Summary ---
Author Organization [facility] Address [address] [place] [address] Care Team Providers Care Swedish Masseuse Name Role Phone David Ashley MD Unavailable [phone] Pcp, No Primary Care Provider Unavailabl e David Ashley MD Primary Care Provider [phone] David Ashley MD Unavailable [phone] Encounter Details Date Type Department Care Team (Late st Contact Info) Description 11/24/2024 Scanned Document [facility] [address] [phone] Eliud Aaron MD [address] [place] [address] Social History Tobacco Use Types Packs/Day Years [...] on filedocumented in this encounter Care Teams Swedish Masseuse Relationship Specialty Start Date End Date David Ashley MD [address] [place] [address] PCP - APNCT [employer] Attributed 06/02/23 01/30/25 Pcp, No PCP - General General Medicine 06/07/24 11/29/24 David Ashley MD [address] [place] [address] PCP - General Internal Medicine 11/30/24 David Ashley MD [address] [place] [address] PCP - APNCT [employer] Attributed 03/02/25 documented as of this encounter
--- OUTSIDE RECORDS SUMMARY | 2025-04-27 16:33 | XMS_ITS | Clinical Summary ---
Author Organization [facility] Address [address] [place] [address] Care Team Providers Care Window Air Conditioner Installer Name Role Phone David Ashley MD Primary Care Provider [phone] Allergies No known active allergies Medications Medication [...] Overview: Added automatically from request for surgery [id number] Acute kidney injury 11/12/2022 Overview: Added automatically from request for surgery [id number] Urinary retention 11/02/2022 Resolved Problems Problem Noted [...] this topic Medical Devices Implanted Type Area Japanese Professor Device Identifier Shelf Expiration Date Model / Serial / Lot Surgiflo Hemostatic Matrix [employer] 2991-885901 - [id number] Implanted:Qty : 1 on 09/11/2022 by Deacon Torres MD at [facility] Hemostatic Agent Anterior: Spine Cervical [employer] 04/01/2024 2991 / / [id number] Surgiflo Hemostatic Matrix [employer] 2991-084710 - [id number] Implanted:Qty : 1 on 03/29/2024 by Davin Lazar MD at [facility] Hemostatic Agent Right: Kidney V[employer] Inc [employer] 08/10/2025 2991 / / [id number] Vikos Cervical 14x14.5x6mm 7d Stry-Spin [id number] -[id number] - [id number] Implanted:Qty : 1 on 09/11/2022 by Deacon Torres MD at [facility] Anterior: Spine Cervical DARRIN SPINE 12/29/2024 [id number] / [id number] / Anterior Cervical Plate Constr 1 Level 22mm Stry-K2m [id number] [id number] - [id number] Implanted:Qty : 1 on 09/11/2022 by Deacon Torres MD at [facility] Anterior: Spine Cervical DARRIN SPINE [id number] / / Screw Va Self-Start 4x14mm Stry-K2m [id number]- [id number] - [id number] Implanted:Qty : 4 on 09/11/2022 by Deacon Torres MD at [facility] Anterior: Spine Cervical DARRIN SPINE [id number] / / Advance Directives For more information, please contact: [phone] Documents on File Type Date Recorded Patient 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 Care Teams Window Air Conditioner Installer Relationship Specialty Start Date End Date David Ashley MD [address] [place] [address] PCP - General Internal Medicine 07/14/15
--- OUTSIDE RECORDS SUMMARY | 2025-04-27 16:33 | XMS_ITS ---
Author Name [facility] Organization Unknown Results Test Name/Text Value Interpretation Date Range Source eGFRcr SerPlBld CKD-EPI 2020 69.0 mL/min/1.73m2 02/20/2025 - [facility] Anion Gap SerPl Calc-sCnc 7.0 02/20/2025 5 - 14 [facility] Sodium SerPl-sCnc 134.0 mmol/L Below low normal 02/20/2025 1 35 - 145 [facility] CO2 SerPl-sCnc 25.0 mmol/L 02/20/2025 24 - 32 CT [facility] BUN/Creat SerPl 9.1 Below low normal 02/20/2025 12 - 2 0 [facility] Potassium SerPl-sCnc 4.7 mmol/L 02/20/2025 3.5 - 5.1 [facility] Creat SerPl-mCnc 1.1 mg/dL 02/20/2025 0.7 - 1.3 CT [facility] BUN SerPl-mCnc 10.0 mg/dL 02/20/2025 9 - 20 [facility] Calcium SerPl-mCnc 8.3 mg/dL Below low normal 02/20/2025 8.4 - 10.2 [facility] Glucose SerPl-mCnc 94.0 mg/dL 02/20/2025 70 - 199 [facility] Chloride SerPl-sCnc 102.0 mmol/L 02/20/2025 98 - 107 [facility] Phosphate SerPl-mCnc 2.6 mg/dL 02/20/2025 2.5 - 4.5 [facility] Magnesium SerPl-mCnc 1.8 mg/dL 02/20/2025 1.7 - 2.8 [facility] Eosinophil # Bld Auto 0.3 K/mcL 02/20/2025 0 - 0.5 [facility] MCHC RBC Auto-EntMCnc 33.7 g/dL 02/20/2025 32 - 36 [facility] Monocytes NFr Bld Auto 14.3 % Above high normal 02/20/2025 2 - 12 [facility] Monocytes # Bld Auto 0.6 K/mcL 02/20/2025 0 - 0.8 [facility] Hct VFr Bld Auto 28.8 % Below low normal 02/20/2025 40 - 54 [facility] Neutrophils # Bld Auto 2.3 K/mcL 02/20/2025 1.8 - 7.8 [facility] WBC # Bld Auto 4.2 K/mcL 02/20/2025 4 - 10.5 [facility] MCH RBC Qn Auto 30.4 pcg 02/20/2025 25 - 33 [facility] Lymphocytes NFr Bld Auto 24.3 % 02/20/2025 20 - 48 [facility] RBC # Bld Auto 3.19 M/mcL Below low normal 02/20/2025 4.7 - 6 [facility] Eosinophil NFr Bld Auto 6.3 % Above high normal 02/20/2025 0 - 6 [facility] Basophils # Bld Auto 0.0 K/mcL 02/20/2025 0 - 0.2 [facility] Platelet # Bld Auto 297.0 K/mcL 02/20/2025 150 - 450 [facility] Basophils NFr Bld Auto 0.5 % 02/20/2025 0 - 2 [facility] PMV Bld Auto 7.5 FL 02/20/2025 7.4 - 11.4 [facility] Neutrophils NFr Bld Auto 54.6 % 02/20/2025 44 - 74 [facility] Lymphocytes # Bld Auto 1.0 K/mcL 02/20/2025 1 - 3.2 [facility] Hgb Bld-mCnc 9.7 g/dL Below low normal 02/20/2025 13.5 - 18 [facility] RBC Auto 90.2 FL 02/20/2025 78 - 100 [facility] RDW RBC Auto 13.3 % 02/20/2025 12.1 - 17.7 [facility] 25(OH)D3 SerPl-mCnc 24.9 ng/mL Below low normal 02/19/2025 30 - 100 [facility] 1,25(OH)2D3 SerPl-mCnc 49.0 pg/mL 02/23/2025 20 - 79 [facility] Vit B12 SerPl-mCnc 179.0 pcg/mL Below low normal 02/19/2025 180 - 914 [facility] Folate SerPl-mCnc 9.4 ng/ml 02/19/2025 - C [facility] Ferritin SerPl-mCnc 126.0 ng/mL 02/19/2025 20 - 250 [facility] UIBC SerPl-mCnc 170.0 mcg/dL 02/19/2025 155 - 355 [facility] Iron SerPl-mCnc 32.0 mcg/dL Below low normal 02/19/2025 49 - 181 [facility] TIBC SerPl-mCnc 202.0 mcg/dL Below low normal 02/19/2025 250 - 450 [facility] Iron Satn MFr SerPl 16.0 % Below low normal 02/19/2025 20 - 45 [facility] Sodium SerPl-sCnc 138.0 mmol/L 02/19/2025 135 - 14 5 [facility] Potassium SerPl-sCnc 4.0 mmol/L 02/19/2025 3.5 - 5.1 [facility] Anion Gap SerPl Calc-sCnc 12.0 02/19/2025 5 - 14 [facility] BUN SerPl-mCnc 13.0 mg/dL 02/19/2025 9 - 20 [facility] CO2 SerPl-sCnc 24.0 mmol/L 02/19/2025 24 - 32 CT [facility] Creat SerPl-mCnc 1.4 mg/dL Above high normal 02/19/2025 0.7 - 1.3 [facility] Calcium SerPl-mCnc 7.2 mg/dL Below low normal 02/19/2025 8.4 - 10.2 [facility] BUN/Creat SerPl 9.3 Below low normal 02/19/2025 12 - 2 0 [facility] Glucose SerPl-mCnc 118.0 mg/dL 02/19/2025 70 - 199 [facility] Chloride SerPl-sCnc 102.0 mmol/L 02/19/2025 98 - 107 [facility] eGFRcr SerPlBld CKD-EPI 2020 51.0 mL/min/1.73m2 Below low normal 02/19/2025 - [facility] Magnesium SerPl-mCnc 2.1 mg/dL 02/19/2025 1.7 - 2.8 [facility] Ca-I Bld-mCnc 0.92 mg/dL Below low normal 02/19/2025 1.19 - 1.35 [facility] Calcium SerPl-mCnc 7.1 mg/dL Below low normal 02/19/2025 8.4 - 10.2 [facility] Albumin SerPl-mCnc 3.7 g/dL 02/19/2025 3.5 - 5 [facility] Magnesium SerPl-mCnc 2.3 mg/dL 02/19/2025 1.7 - 2.8 [facility] PTH-Intact SerPl-mCnc 233.6 pcg/mL Above high normal 02/18/2025 10 - 65 [facility] Calcium SerPl-mCnc 5.9 mg/dL Critically low 02/18/2025 8.4 - 10.2 [facility] Potassium SerPl-sCnc 3.7 mmol/L 02/18/2025 3.5 - 5.1 [facility] BUN SerPl-mCnc 14.0 mg/dL 02/18/2025 9 - 20 [facility] Sodium SerPl-sCnc 137.0 mmol/L 02/18/2025 135 - 14 5 [facility] Creat SerPl-mCnc 1.5 mg/dL Above high normal 02/18/2025 0.7 - 1.3 [facility] Anion Gap SerPl Calc-sCnc 14.0 02/18/2025 5 - 14 [facility] eGFRcr SerPlBld CKD-EPI 2020 47.0 mL/min/1.73m2 Below low normal 02/18/2025 - [facility] Chloride SerPl-sCnc 98.0 mmol/L 02/18/2025 98 - 107 [facility] Glucose SerPl-mCnc 87.0 mg/dL 02/18/2025 70 - 199 [facility] BUN/Creat SerPl 9.3 Below low normal 02/18/2025 12 - 2 0 [facility] CO2 SerPl-sCnc 25.0 mmol/L 02/18/2025 24 - 32 CT [facility] Magnesium SerPl-mCnc 0.5 mg/dL Critically low 02/18/2025 1.7 - 2.8 [facility] Ca-I Bld-mCnc 0.68 mg/dL Critically low 02/18/2025 1.19 - 1. 35 [facility] Glucose Bld-mCnc 82.0 mg/dL 02/18/2025 70 - 199 C T[facility] Albumin SerPl-mCnc 3.6 g/dL 02/18/2025 3.5 - 5 [facility] Magnesium SerPl-mCnc 0.6 mg/dL Critically low 02/18/2025 1.7 - 2.8 [facility] Sodium SerPl-sCnc 137.0 mmol/L 02/18/2025 135 - 14 5 [facility] CO2 SerPl-sCnc 27.0 mmol/L 02/18/2025 24 - 32 CT [facility] Creat SerPl-mCnc 1.5 mg/dL Above high normal 02/18/2025 0.7 - 1.3 [facility] eGFRcr SerPlBld CKD-EPI 2020 47.0 mL/min/1.73m2 Below low normal 02/18/2025 - [facility] Anion Gap SerPl Calc-sCnc 11.0 02/18/2025 5 - 14 [facility] Chloride SerPl-sCnc 99.0 mmol/L 02/18/2025 98 - 107 [facility] Glucose SerPl-mCnc 87.0 mg/dL 02/18/2025 70 - 199 [facility] Potassium SerPl-sCnc 4.4 mmol/L 02/18/2025 3.5 - 5.1 [facility] BUN/Creat SerPl 9.3 Below low normal 02/18/2025 12 - 2 0 [facility] Calcium SerPl-mCnc 5.9 mg/dL Critically low 02/18/2025 8.4 - 10.2 [facility] BUN SerPl-mCnc 14.0 mg/dL 02/18/2025 9 - 20 [facility] Phosphate SerPl-mCnc 4.6 mg/dL Above high normal 02/18/2025 2.5 - 4.5 [facility] Hgb Bld-mCnc 9.9 g/dL Below low normal 02/18/2025 13.5 - 18 [facility] Platelet # Bld Auto 273.0 K/mcL 02/18/2025 150 - 450 [facility] MCHC RBC Auto-EntMCnc 34.9 g/dL 02/18/2025 32 - 36 [facility] RBC Auto 88.8 FL 02/18/2025 78 - 100 [facility] N Hct VFr Bld Auto 28.3 % Below low normal 02/18/2025 40 - 54 [facility] Monocytes NFr Bld Auto 11.0 % 02/18/2025 2 - 12 [facility] PMV Bld Auto 7.1 FL Below low normal 02/18/2025 7.4 - 11. 4 [facility] Lymphocytes NFr Bld Auto 23.1 % 02/18/2025 20 - 48 [facility] Lymphocytes # Bld Auto 1.2 K/mcL 02/18/2025 1 - 3.2 [facility] Monocytes # Bld Auto 0.6 K/mcL 02/18/2025 0 - 0.8 [facility] Eosinophil # Bld Auto 0.2 K/mcL 02/18/2025 0 - 0.5 [facility] Eosinophil NFr Bld Auto 4.1 % 02/18/2025 0 - 6 [facility] MCH RBC Qn Auto 31.0 pcg 02/18/2025 25 - 33 [facility] RBC # Bld Auto 3.19 M/mcL Below low normal 02/18/2025 4.7 - 6 [facility] RDW RBC Auto 13.3 % 02/18/2025 12.1 - 17.7 [facility] Basophils NFr Bld Auto 0.7 % 02/18/2025 0 - 2 [facility] Basophils # Bld Auto 0.0 K/mcL 02/18/2025 0 - 0.2 [facility] Neutrophils NFr Bld Auto 61.1 % 02/18/2025 44 - 74 [facility] WBC # Bld Auto 5.3 K/mcL 02/18/2025 4 - 10.5 [facility] Neutrophils # Bld Auto 3.2 K/mcL 02/18/2025 1.8 - 7.8 [facility] PHOSPHATE SERPL MCNC 2.8 mg/dL Normal 03/31/2024 2.5 - 4.5 [facility] RBC NO. BLD AUTO 3.34 M/uL Below low normal 03/31/2024 4.7 - 6 [facility] PLATELET NO. BLD AUTO 238.0 K/uL Normal 03/31/2024 150 - 450 [facility] PMV BLD AUTO 7.4 fL Normal 03/31/2024 7.4 - 11.4 [facility] MCV RBC AUTO 91.9 fL Normal 03/31/2024 78 - 100 [facility] HCT VFR BLD AUTO 30.7 % Below low normal 03/31/2024 40 - 54 [facility] WBC NO. BLD AUTO 7.6 K/uL Normal 03/31/2024 4 - 10.5 CT [facility] MCHC RBC AUTO MCNC 34.2 g/dL Normal 03/31/2024 32 - 36 [facility] HGB BLD MCNC 10.5 g/dL Below low normal 03/31/2024 13.5 - 18 [facility] RDW RBC AUTO RTO 13.8 % Normal 03/31/2024 12.1 - 17.7 [facility] MCH RBC QN AUTO 31.4 pg Normal 03/31/2024 25 - 33 [facility] CHLORIDE SERPL SCNC 105.0 mmol/L Normal 03/31/2024 98 - 107 [facility] ANION GAP SERPL SCNC 10.0 mmol/L Normal 03/31/2024 5 - 14 [facility] CREAT SERPL MCNC 1.6 mg/dL Above high normal 03/31/2024 0.7 - 1.3 [facility] POTASSIUM SERPL SCNC 4.6 mmol/L Normal 03/31/2024 3.5 - 5.1 [facility] GLUCOSE SERPL MCNC 110.0 mg/dL Normal 03/31/2024 70 - 199 [facility] Glomerular filtration rate/1.73 sq M. predicted 44.0 Below low normal 03/31/2024 60 - [facility] SODIUM SERPL SCNC 137.0 mmol/L Normal 03/31/2024 135 - 14 5 [facility] HCO3 SER SCNC 22.0 mmol/L Below low normal 03/31/2024 24 - 3 2 [facility] CALCIUM SERPL MCNC 8.5 mg/dL Normal 03/31/2024 8.4 - 10.2 [facility] BUN SERPL MCNC 22.0 mg/dL Above high normal 03/31/2024 9 - 2 0 [facility] MAGNESIUM SERPL MCNC 1.7 mg/dL Normal 03/31/2024 1.7 - 2.8 [facility] PLATELET NO. BLD AUTO 274.0 K/uL Normal 03/30/2024 150 - 450 [facility] WBC NO. BLD AUTO 8.7 K/uL Normal 03/30/2024 4 - 10.5 CT [facility] PMV BLD AUTO 7.5 fL Normal 03/30/2024 7.4 - 11.4 [facility] HGB BLD MCNC 11.2 g/dL Below low normal 03/30/2024 13.5 - 18 [facility] RBC NO. BLD AUTO 3.52 M/uL Below low normal 03/30/2024 4.7 - 6 [facility] MCV RBC AUTO 92.1 fL Normal 03/30/2024 78 - 100 [facility] MCHC RBC AUTO MCNC 34.4 g/dL Normal 03/30/2024 32 - 36 [facility] HCT VFR BLD AUTO 32.4 % Below low normal 03/30/2024 40 - 54 [facility] MCH RBC QN AUTO 31.7 pg Normal 03/30/2024 25 - 33 [facility] RDW RBC AUTO RTO 14.0 % Normal 03/30/2024 12.1 - 17.7 [facility] MAGNESIUM SERPL MCNC 1.5 mg/dL Below low normal 03/30/2024 1.7 - 2.8 [facility] PHOSPHATE SERPL MCNC 3.1 mg/dL Normal 03/30/2024 2.5 - 4.5 [facility] CHLORIDE SERPL SCNC 104.0 mmol/L Normal 03/30/2024 98 - 107 [facility] SODIUM SERPL SCNC 135.0 mmol/L Normal 03/30/2024 135 - 14 5 [facility] CREAT SERPL MCNC 1.8 mg/dL Above high normal 03/30/2024 0.7 - 1.3 [facility] POTASSIUM SERPL SCNC 4.7 mmol/L Normal 03/30/2024 3.5 - 5.1 [facility] GLUCOSE SERPL MCNC 114.0 mg/dL Normal 03/30/2024 70 - 199 [facility] ANION GAP SERPL SCNC 8.0 mmol/L Normal 03/30/2024 5 - 14 [facility] Glomerular filtration rate/1.73 sq M. predicted 38.0 Below low normal 03/30/2024 60 - [facility] BUN SERPL MCNC 25.0 mg/dL Above high normal 03/30/2024 9 - 2 0 [facility] CALCIUM SERPL MCNC 8.4 mg/dL Normal 03/30/2024 8.4 - 10.2 [facility] HCO3 SER SCNC 23.0 mmol/L Below low normal 03/30/2024 24 - 3 [facility]-IMP Testing performed at [facility], [address] [place] [id number], Елена Carrillo MD Development Chemist, [facility] [id number] Normal 03/29/2024 [facility] ABO+RH GP BLD A POSITIVE Normal 03/29/[address] [facility] BLOOD BANK CMNT PATIENT-IMP Testing performed at [facility], [address] [place] [id number], Елена Carrillo MD Development Chemist, [facility] [id number] Normal 03/29/2024 [facility] BLD GP AB SCN SERPL QL NEGATIVE Normal 03/29/2024 [facility] A[facility]+RH GP BLD A POSITIVE Normal 03/29/[address] [facility] Troponin I SerPl HS-mCnc 9.0 ng/L Normal 08/01/2023 0 - 20 [facility] LYMPHOC[facility]TES NFR BLD AUTO 13.5 % Below low normal 08/01/2023 20 - 48 [facility] MONOCYTES NO. BLD AUTO 0.7 K/uL Normal 08/01/2023 0 - 0.8 [facility] RBC NO. BLD AUTO 4.21 M/uL Below low normal 08/01/2023 4.7 - 6 [facility] LYMPHOCYTES NO. BLD AUTO 0.9 K/uL Below low normal 08/01/2023 1 - 3.2 [facility] MCH RBC QN AUTO 29.7 pg Normal 08/01/2023 25 - 33 [facility] EOSINOPHIL NO. BLD AUTO 0.2 K/uL Normal 08/01/2023 0 - 0.5 [facility] HGB BLD MCNC 12.5 g/dL Below low normal 08/01/2023 13.5 - 18 [facility] IMMATURE GRANULOCYTE, PERCENT 1.8 % Above high normal 08/01/2023 0 - 1 [facility] NEUTROPHILS NO. BLD AUTO 4.6 K/uL Normal 08/01/2023 1.8 - 7.8 [facility] MCHC RBC AUTO MCNC 35.0 g/dL Normal 08/01/2023 32 - 36 [facility] MONOCYTES NFR BLD AUTO 10.0 % Normal 08/01/2023 2 - 12 [facility] IMMATURE GRANULOCYTE, ABSOLUTE 0.12 k/uL Above high normal 08/01/2023 - 0.1 [facility] RDW RBC AUTO RTO 13.1 % Normal 08/01/2023 12.1 - 17.7 [facility] PMV BLD AUTO 9.4 fL Normal 08/01/2023 7.4 - 11.4 [facility] VFR BLD AUTO 35.7 % Below low normal 08/01/2023 40 - 54 [facility] BASOPHILS IN BLOOD BY AUTOMATED COUNT 0.0 K/uL Normal 08/01/2023 0 - 0.2 [facility] PLATELET NO. BLD AUTO 275.0 K/uL Normal 08/01/2023 150 - 450 [facility] BASOPHILS NFR BLD AUTO 0.5 % Normal 08/01/2023 0 - 2 [facility] EOSINOPHIL NFR BLD AUTO 2.9 % Normal 08/01/2023 0 - 6 [facility] MCV RBC AUTO 84.8 fL Normal 08/01/2023 78 - 100 [facility] NEUTROP[facility] NFR BLD AUTO 71.3 % Normal 08/01/2023 44 - 74 [facility] WBC NO. BLD AUTO 6.5 K/uL Normal 08/01/2023 4 - 10.5 CT [facility] NUCLEATED RBC 0.0 % Normal 08/01/2023 0 - 1 [facility] Troponin I SerPl HS-mCnc 9.0 ng/L Normal 08/01/2023 0 - 20 [facility] D DIMER DDU PPP EIA MCNC 198.0 ng/mL DDU Normal 08/01/2023 - 231 [facility] ANION GAP SERPL SCNC 8.0 mmol/L Normal 08/01/2023 5 - 14 [facility] CREAT SERPL MCNC 1.0 mg/dL Normal 08/01/2023 0.7 - 1.3 CT [facility] POTASSIUM SERPL SCNC 4.0 mmol/L Normal 08/01/2023 3.5 - 5.1 [facility] CALCIUM SERPL MCNC 8.9 mg/dL Normal 08/01/2023 8.4 - 10.2 [facility] Glomerular filtration rate/1.73 sq M. predicted 78.0 Normal 08/01/2023 60 - [facility] BUN SERPL MCNC 11.0 mg/dL Normal 08/01/2023 9 - 20 [facility] CHLORIDE SERPL SCNC 103.0 mmol/L Normal 08/01/2023 98 - 107 [facility] SODIUM SERPL SCNC 140.0 mmol/L Normal 08/01/2023 135 - 14 5 [facility] GLUCOSE SERPL MCNC 82.0 mg/dL Normal 08/01/2023 70 - 199 [facility] HCO3 SER SCNC 29.0 mmol/L Normal 08/01/2023 24 - 32 [facility] History of Medication Use Medication Directions Dispensed Refills Start Date End Date Status multivitamin tablet Take 1 tablet by mouth 1 (one) time each day. 02/22/20 active cyanocobalamin (VITAMIN B-12) 1,000 mcg tablet Take 1 tablet (1,000 mcg total) by mouth 1 (one) time each day. 02/21/20 active ergocalciferol (VITAMIN D-2) 1,250 mcg (50,000 unit) capsule Take 1 capsule (50,000 Units total) by mouth 1 (one) time per week. 02/21/20 active cyanocobalamin (VITAMIN B-12) injection 1,000 mcg 1,000 mcg, intramuscular, Daily, First dose on 02/19/25 at 1230, For 3 days 02/20/20 25 025 active dextrose 5 % lactated ringers infusion 75 mL/hr, intravenous, Continuous, Starting on 02/19/25 at 1245, For 24 hours 02/20/20 025 completed calcium carbonate (TUMS) 500 mg (200 mg elemental calcium) chewable tablet Chew 2 tablets (1,000 mg total) 2 (two) times a day for 15 days. 02/20/20 active hydrOXYzine HCL (ATARAX) tablet 25 mg 25 mg, oral, Every 8 hours PRN, itching, anxiety, Starting on 02/19/25 at 1221 02/20/20 25 active multivitamin tablet 1 tablet 1 tablet (1 each), oral, Daily, First dose on 02/19/25 at 1230 02/20/20 25 active senna (SENOKOT) tablet 17.2 mg 17.2 mg (2 tablet), oral, Nightly, First dose on Fri02/18/25 at 2100, Bowel Regimen - for prevention of constipation 02/20/20 active zolpidem (AMBIEN) tablet 2.5 mg 2.5 mg, oral, Nightly PRN, sleep, Starting on 02/19/25 at 1207 02/20/20 25 active calcium carbonate-vitamin D 500 mg-5 mcg (200 unit) per tablet 1 tablet 1 tablet, oral, 2 times daily, First dose on Fri02/18/25 at 1312 02/19/20 025 aborted calcium gluconate 2 gram/100 mL IVPB (premix) 2 g 2 g, intravenous, at 100 mL/hr, Administer over 60 Minutes, Once, On Fri02/19/25 at 0930, For 1 dose 02/19/20 025 completed sodium chloride 0.9 % infusion 75 mL/hr, intravenous, Continuous, Starting on Fri02/18/25 at 1305 02/19/20 aborted iopamidoL (ISOVUE-370) 370 mg iodine /mL (76 %) injection 75 mL 75 mL, intravenous, Once in imaging, Starting on Fri02/18/25 at 1130, For 1 dose 02/19/20 025 completed magnesium sulfate 2 gram/50 mL (4 %) IVPB 2 g 2 g, intravenous, at 25 mL/hr, Administer over 2 Hours, Every 2 hours, First dose on Fri02/18/25 at 1029, For 3 doses 02/19/20 025 completed sodium chloride 0.9 % flush 10 mL 10 mL, intravenous, Once, On Fri02/18/25 at 1130, For 1 dose 02/19/20 025 completed sodium chloride 0.9 % intravenous solution 50 mL 50 mL, intravenous, Once in imaging, Starting on Fri02/18/25 at 1129, For 1 dose 02/19/20 025 completed acetaminophen (TYLENOL) tablet 650 mg 650 mg, oral, Every 6 hours PRN, mild pain, Starting on Fri02/18/25 at 1303 02/19/20 active albuterol 2.5 mg /3 mL (0.083 %) nebulizer solution 2.5 mg 2.5 mg, nebulization, Every 8 hours PRN, wheezing, Starting on Fri02/18/25 at 1219 02/19/20 active enoxaparin (LOVENOX) injection 40 mg 40 mg, subcutaneous, Daily, First dose on Fri02/18/25 at 1400, Indication: VTE/PE Prophylaxis 09/19/20 25 active ondansetron ODT (ZOFRAN-ODT) disintegrating tablet 4 mg [Order 1 Start] Name: ondansetron ODT (ZOFRAN-ODT) disintegrating tablet 4 mg Signed Summary: 4 mg, oral, Every 8 hours PRN, vomiting, nausea, Starting on Fri02/18/25 at 1303, -Give IV if patient is unable to take orally. -If inadequate response within 30 minutes, proceed to next-line agent or conta 02/19/20 25 active polyethylene glycol (MIRALAX) packet 17 g 17 g, oral, Daily, First dose on Fri02/18/25 at 1305, Bowel Regimen - for prevention of constipation 02/19/20 25 active predniSONE (DELTASONE) 20 MG tablet Take 1 tablet (20 mg total) by mouth daily. With food. Take 60mg x 3 days, then 40mg x3 days, 20mg x 3 days and stop. 01/22/20 25 active linaclotide (LINZESS) 145 MCG Cap capsule Take on an empty stomach at least 30 minutes prior to a meal at approximately the same time each day. 01/12/20 25 active Ensifentrine (Ohtuvayre) 3 MG/2.5ML Suspension Inhale 2.5 mL 2 times a day. 12/30/19 25 active ipratropium-albuterol (DUONEB) 0.5-2.5 mg/3 mL nebulizer solution Take 3 mL by nebulization 4 times daily (every 6 hours) as needed for wheezing or shortness of breath. 12/30/19 25 active polyethylene glycol (COLYTE) 240 g solution Take as directed for Colonoscopy/GI Procedure. See administration instructions. 12/09/19 25 025 aborted azithromycin (ZITHROMAX) 500 MG tablet Take 1 tablet (500 mg total) by mouth 3 (three) times a week. 12/09/19 25 active traZODone (DESYREL) 50 MG tablet 1 tablet (50 mg total). 10/24/19 25 active clarithromycin (BIAXIN) 500 mg tablet Take 1 tablet (500 mg total) by mouth 2 (two) times a day. 09/28/19 25 active methylPREDNISolone (MEDROL) 8 MG tablet 2 tabs bid x 3 days, then 1 tab bid x 3 days and then 1 tab every day until complete 09/28/19 active Breztri Aerosphere 160-9-4.8 MCG/ACT Aerosol INHALE 2 PUFFS BY MOUTH ONCE DAILY NEEDED. 09/08/19 active albuterol (PROVENTIL) (0.083%) 2.5 mg/3 mL nebulizer solution Take 3 mL (2.5 mg total) by nebulization 4 times daily (every 6 hours) as needed for wheezing. 08/26/19 active spacer for MDI (Aerochamber/BreatheRit e/Ellipse) Device Use as instructed 08/26/19 active losartan-hydroCHLOROthi azide (HYZAAR) 50-12.5 mg per tablet TAKE 1 TABLET BY MOUTH EVERY DAY 07/26/19 aborted doxycycline (VIBRAMYCIN) 100 MG capsule Take 1 capsule (100 mg total) by mouth 2 (two) times a day. 07/09/19 active ipratropium (ATROVENT) 0.06 % nasal spray 2 sprays into each nostril 4 (four) times a day as needed for rhinitis. 07/09/19 active predniSONE (DELTASONE) 10 MG tablet With food. 50mg x 3 days, 40mg x 3 days, then 30mg x 3 days, then 20mg x 3 days, then 10mg x 3 days and then stop. 07/09/19 active atorvastatin (LIPITOR) tablet 20 mg 20 mg, oral, Daily, First dose on Fri02/18/25 at 1309 06/04/19 active oxyCODONE (ROXICODONE) 5 mg immediate release tablet Take 1 tablet (5 mg total) by mouth every 4 (four) hours as needed for pain for up to 6 doses. 04/01/20 active docusate sodium (COLACE) 100 mg capsule Take 1 capsule (100 mg total) by mouth 2 (two) times a day for 14 days. 03/31/20 025 aborted oxyCODONE (ROXICODONE) 5 MG immediate release tablet Take 1 tablet (5 mg total) by mouth every 4 (four) hours as needed for pain for up to 6 doses. 03/31/20 active magnesium sulfate 2 g/50ml IVPB Premix 2 g, Intravenous, at 50 mL/hr, Once, On Fri03/31/24 at 1000, For 1 dose 03/30/20 completed amLODIPine (NORVASC) tablet 5 mg 5 mg, Oral, Daily, First dose on Fri03/30/24 at 0900 03/30/20 active hydroCHLOROthiazide (HYDRODIURIL) tablet 12.5 mg 12.5 mg, Oral, Daily, First dose on Fri03/30/24 at 0900 03/30/20 active losartan (COZAAR) tablet 50 mg 50 mg, Oral, Daily, First dose on Fri03/30/24 at 0900 03/30/20 active pantoprazole (PROTONIX) 40 MG EC tablet 40 mg 40 mg, Oral, Every Morning on an empty stomach (Daily), First dose on Fri03/30/24 at 0600Please select an indication: GERDIs this a home medication or a new start? Home Medication 03/30/20 active HYDROmorphone (DILAUDID) injection 0.5 mg 0.5 mg, Intravenous, Every 4 hours PRN, Severe, breakthrough pain, inability to tolerate PO, Starting on Fri03/29/24 at 1525Administer IV push over 2-3 minutes. 03/29/20 active orphenadrine (NORFLEX) injection 30 mg 30 mg, Intravenous, Once as needed, muscle spasms, for musculoskeletal pain, to achieve pain scale less than or equal to 4, Starting on Fri03/29/24 at 1054, For 1 dose, PACU/Phase 1 03/29/20 completed acetaminophen (TYLENOL) tablet 650 mg 650 mg, Oral, Every 6 hours scheduled (4 times per day), First dose on Fri03/29/24 at 1800 03/29/20 active albuterol (PROVENTIL) nebulizer solution 2.5 mg 2.5 mg, Nebulization, Every 6 hours PRN, wheezing, shortness of breath, Starting on Fri03/29/24 at 1407 03/29/20 active benzocaine-menthol (CEPACOL) lozenge 1 lozenge 1 lozenge, Oral, Every 2 hours PRN, sore throat, Starting on Fri03/29/24 at 1137 03/29/20 24 active calcium carbonate (TUMS) chewable tablet 500 mg 500 mg, Oral, 2 times daily PRN, indigestion, heartburn, Starting on Fri03/29/24 at 1137 03/29/20 24 active heparin (porcine) injection 5,000 Units 5,000 Units, Subcutaneous, Every 8 hours scheduled, First dose on Fri03/29/24 at 1400If CrCL less than 30 use subcut Heparin 03/29/20 active lidocaine (XYLOCAINE) 2 % sterile jelly 10 mL 10 mL, Urethral, 2 times daily PRN, mild pain (1-3), moderate pain (4-6), Starting on Fri03/29/24 at 1137 03/29/20 24 active melatonin 3 MG tablet 3 mg 3 mg, Oral, Every Night at Bedtime PRN, insomnia, Starting on Fri03/29/24 at 1407 03/29/20 24 active metoclopramide (REGLAN) injection 10 mg 10 mg, Intravenous, Every 6 hours PRN, nausea, vomiting, Starting on Fri03/29/24 at 1137 03/29/20 24 active ondansetron (ZOFRAN) injection 4 mg 4 mg, Intravenous, Every 6 hours PRN, nausea, vomiting, Starting on Fri03/29/24 at 1407IV push over 2 to 5 minutes. 03/29/20 active oxyCODONE (ROXICODONE) 5 MG immediate release tablet 5 mg [Order 1 Start] Name: oxyCODONE (ROXICODONE) 5 MG immediate release tablet 5 mg Signed Summary: 5 mg, Oral, Every 4 hours PRN, moderate pain (4-6), Starting on Fri03/29/24 at 1407 [Order 1 End] [Order 2 Start] Name: oxyCODONE (ROXICODONE) 5 MG immediate release tablet 10 mg Signed Summary: 10 mg, O 03/29/20 active polyethylene glycol (MIRALAX) packet 17 g 17 g, Oral, Daily as needed, constipation, Starting on Fri03/29/24 at 1407Dissolve in 8oz of H2O, juice,soda or coffee 03/29/20 active sodium chloride 0.9% (NS) infusion 75 mL/hr, Intravenous, Continuous, Starting on Fri03/29/24 at 1145 03/29/20 active atorvastatin (LIPITOR) tablet 20 mg Take 1 tablet (20 mg total) by mouth daily. 08/13/19 active losartan-hydrochlorothi azide (Hyzaar) 50-12.5 MG per tablet Take 1 tablet by mouth daily. 08/07/19 active losartan-hydrochlorothi azide (Hyzaar) 50-12.5 MG per tablet Take 1 tablet by mouth daily. 08/07/19 active iopamidol (ISOVUE-370) 76 % injection 0-150 mL 0-150 mL, Intravenous, IMG once as needed, contrast, Starting on Fri08/01/23 at 1753, For 1 dose, Radiology Contrast 08/01/19 completed phenazopyridine (PYRIDIUM) 100 MG tablet Take 1 tablet (100 mg total) by mouth 3 (three) times a day as needed for pain. 12/14/19 active phenazopyridine 100 mg tablet Take 1 tablet (100 mg total) by mouth 3 (three) times a day as needed for pain. 12/14/19 024 completed phenazopyridine (PYRIDIUM) 100 MG tablet Take 1 tablet (100 mg total) by mouth 3 (three) times a day as needed for pain. 12/14/19 024 aborted phenazopyridine (PYRIDIUM) 100 mg tablet TAKE 1 TABLET BY MOUTH 3 TIMES A DAY NEEDED FOR PAIN. 12/12/19 025 aborted phenazopyridine (PYRIDIUM) 100 MG tablet TAKE 1 TABLET BY MOUTH 3 TIMES A DAY NEEDED FOR PAIN. 12/12/19 active phenazopyridine (PYRIDIUM) 100 MG tablet TAKE 1 TABLET BY MOUTH 3 TIMES A DAY NEEDED FOR PAIN. 12/12/19 active phenazopyridine (PYRIDIUM) 100 MG tablet TAKE 1 TABLET BY MOUTH 3 TIMES A DAY NEEDED FOR PAIN. 12/12/19 active betamethasone valerate (VALISONE) 0.1 % cream APPLY TO AFFECTED AREA TOPICALLY EVERY DAY 12/07/19 23 025 aborted betamethasone valerate 0.1 % topical cream APPLY TO AFFECTED AREA TOPICALLY EVERY DAY 12/07/19 active betamethasone valerate (VALISONE) 0.1 % cream APPLY TO AFFECTED AREA TOPICALLY EVERY DAY 12/07/19 active betamethasone valerate (VALISONE) 0.1 % cream APPLY TO AFFECTED AREA TOPICALLY EVERY DAY 12/07/19 active betamethasone valerate (VALISONE) 0.1 % cream APPLY TO AFFECTED AREA TOPICALLY EVERY DAY 12/07/19 active docusate sodium (Colace) 100 MG capsule Take 1 capsule (100 mg total) by mouth 2 (two) times a day for 14 days. 11/24/19 active polyethylene glycol 3350 17 gram oral powder packet Take 17 g by mouth daily. 11/24/19 completed polyethylene glycol (MIRALAX) 17 g packet Take 17 g by mouth daily. 11/24/19 aborted docusate sodium 100 mg capsule Take 1 capsule (100 mg total) by mouth daily as needed for constipation. 11/24/19 active docusate sodium (Colace) 100 MG capsule Take 1 capsule (100 mg total) by mouth daily as needed for constipation. 11/24/19 active docusate sodium (Colace) 100 MG capsule Take 1 capsule (100 mg total) by mouth daily as needed for constipation. 11/24/19 active polyethylene glycol (MIRALAX) 17 g packet Take 17 g by mouth daily. 11/24/19 active finasteride 5 mg tablet Take 1 tablet (5 mg total) by mouth daily. 11/04/19 completed finasteride (PROSCAR) 5 MG tablet Take 1 tablet (5 mg total) by mouth daily. 11/04/19 aborted finasteride (PROSCAR) 5 MG tablet Take 1 tablet (5 mg total) by mouth daily. 11/04/19 active albuterol sulfate HFA 90 mcg/actuation aerosol inhaler Inhale 2 puffs into the lungs every 6 (six) hours as needed. 10/30/19 active albuterol 108 (90 Base) MCG/ACT inhaler Inhale 2 puffs into the lungs every 6 (six) hours as needed. 10/30/19 active albuterol 108 (90 Base) MCG/ACT inhaler Inhale 2 puffs into the lungs every 6 (six) hours as needed. 10/30/19 active albuterol 108 (90 Base) MCG/ACT inhaler Inhale 2 puffs into the lungs every 6 (six) hours as needed. 10/30/19 active albuterol HFA (PROAIR HFA ; PROVENTIL HFA ; VENTOLIN HFA) 90 mcg/actuation inhaler Inhale 2 puffs into the lungs every 6 (six) hours as needed. 10/30/19 active Symbicort 160-4.5 MCG/ACT inhaler Inhale 2 inhalations into the lungs 2 (two) times a day. 08/03/19 23 024 aborted Symbicort 160-4.5 MCG/ACT inhaler Inhale 2 inhalations into the lungs 2 (two) times a day. 08/03/19 23 active omeprazole (PRILOSEC) 40 MG capsule Take 1 capsule (40 mg total) by mouth daily. 06/05/19 16 active omeprazole (PRILOSEC) 40 MG capsule Take 1 capsule (40 mg total) by mouth daily. 06/05/19 16 active omeprazole (PRILOSEC) 40 MG capsule Take 1 capsule (40 mg total) by mouth daily. 06/05/19 16 active omeprazole (PriLOSEC) [address] capsule Take 1 capsule (40 mg total) by mouth daily. 06/05/19 16 active tamsulosin (FLOMAX) 0.4 MG CAPS Take 2 capsules (0.8 mg total) by mouth every night at bedtime. 05/15/20 15 024 active tamsulosin (FLOMAX) 0.4 MG CAPS Take 2 capsules (0.8 mg total) by mouth every night at bedtime. 05/15/20 15 active amLODIPine (NORVASC) 5 mg tablet Take 1 tablet (5 mg total) by mouth daily. 025 aborted clarithromycin 500 mg tablet TAKE 1 TABLET BY MOUTH TWICE A DAY 025 completed doxycycline hyclate 100 mg capsule TAKE 1 CAPSULE BY MOUTH TWICE A DAY 025 completed albuterol sulf 90 mcg/actuation breath activated powder inhaler,sensor Inhale 2 puffs every 4 hours by inhalation route. active albuterol sulfate 2.5 mg/3 mL (0.083 %) solution for nebulization INHALE 1 VIAL(2.5 MG TOTAL) BY NEBULIZATION 4 TIMES A DAY (EVERY 6 HOURS) NEEDED FOR WHEEZING active albuterol sulfate HFA 90 mcg/actuation aerosol inhaler INHALE 2 PUFFS BY MOUTH 4 TIMES A DAY active amlodipine 5 mg tablet Take 1 tablet coleman day by oral route. active amlodipine 5 mg tablet TAKE 1 TABLET BY MOUTH EVERY DAY active amoxicillin 500 mg-potassium clavulanate 125 mg tablet TAKE 1 TABLET TWICE A DAY active atorvastatin 20 mg tablet Take 1 tablet every day by oral route. active atorvastatin 20 mg tablet TAKE 1 TABLET BY MOUTH EVERY DAY active azithromycin 500 mg tablet TAKE 1 TABLET (500 MG TOTAL) BY MOUTH 3 (THREE) TIMES A WEEK. active betamethasone valerate 0.1 % topical cream APPLY TO AFFECTED AREA TOPICALLY EVERY DAY active Breztri Aerosphere 160 mcg-9mcg-4.8mcg/actuati on HFA aerosol inhaler USE 2 PUFFS ONCE A DAY NEEDED active buspirone 15 mg tablet TAKE 1 TABLET BY MOUTH EVERY DAY active cefuroxime axetil 500 mg tablet TAKE 1 TABLET BY MOUTH TWICE A DAY active cholecalciferol (vitamin D3) 50 mcg (2,000 unit) capsule TAKE 1 CAPSULE BY MOUTH EVERY DAY active dexamethasone 4 mg tablet TAKE 1 TABLET BY MOUTH THREE TIMES A DAY active docusate sodium 100 mg capsule TAKE 1 CAPSULE BY MOUTH TWICE A DAY active finasteride 5 mg tablet TAKE 1 TABLET (5 MG TOTAL) BY MOUTH DAILY. active fluticasone propionate 50 mcg/actuation nasal spray,suspension SPRAY 2 SPRAYS INTO EACH NOSTRIL EVERY DAY active Gavilyte-C 240 gram-22.72 gram-6.72 gram-5.84 gram oral solution TAKE DIRECTED FOR COLONOSCOPY/GI PROCEDURE. SEE ADMINISTRATION INSTRUCTIONS active ipratropium bromide 42 mcg (0.06 %) nasal spray SPRAY 2 SPRAYS INTO EACH NOSTRIL 4 TIMES A DAY NEEDED FOR RHINITIS active Linzess 145 mcg capsule PLEASE SEE [facility] FOR DETAILED DIRECTIONS active losartan 50 mg-hydrochlorothiazide 12.5 mg tablet Take 1 tablet every day by oral route. active losartan 50 mg-hydrochlorothiazide 12.5 mg tablet TAKE 1 TABLET BY MOUTH EVERY DAY active magnesium oxide 400 mg (241.3 mg magnesium) tablet TAKE 1 TABLET BY MOUTH EVERY DAY IN THE EVENING active meloxicam 15 mg tablet TAKE 1 TABLET BY MOUTH EVERY DAY active memantine 10 mg tablet TAKE 1 TABLET BY MOUTH EVERY DAY active methocarbamol 750 mg tablet TAKE ONE TAB BY MOUTH EVERY EVERY 6 HOURS NEEDED SPASM. active methylprednisolone 4 mg tablets in a dose pack TAKE DIRECTED active methylprednisolone 8 mg tablet TAKE 2 TABS TWICE DAILY FOR 3 DAYS, 1 TAB TWICE DAILY FOR 3 DAYS, 1 TAB ONCE A DAY UNTIL COMPLETE active nabumetone 750 mg tablet 2 TABLET ONCE A DAY WITH FOOD active naproxen 500 mg tablet TAKE 1 TABLET TWI CE A DAY active omeprazole 40 mg capsule,delayed release TAKE 1 CAPSULE BY MOUTH EVERY DAY active omeprazole 40 mg capsule,delayed release Take 1 capsule every day by oral route. active oxycodone 5 mg tablet TAKE 1 TABLET BY MOUTH EVERY 4 HOURS NEEDED active phenazopyridine 100 mg tablet TAKE 1 TABLET BY MOUTH 3 TIMES A DAY NEEDED FOR PAIN. active pramipexole 0.5 mg tablet 1 TABLET EVERY DAY AT BEDTIME active prednisone 10 mg tablet PLEASE SEE [facility] FOR DETAILED DIRECTIONS active prednisone 20 mg tablet TAKE 3 TABLETS F OR 3 DAYS, THEN 2 TABS FOR 3 DAYS, THEN 1 DAILY FOR 3 DAYS AND STOP active pregabalin 50 mg capsule TAKE 1 CAPSULE BY MOUTH EVERY DAY IN THE EVENING active promethazine-DM 6.25 mg-15 mg/5 mL oral syrup GIVE 5ML 3 TIMES A DAY active Purelax 17 gram/dose oral powder DISSOLVE 17 GRAMS INTO WATER AND DRINK BY MOUTH EVERY DAY active Senna Plus 8.6 mg-50 mg tablet TAKE 1 TABLET BY MOUTH 2 (TWO) TIMES A DAY. TAKE WHILE ON NARCOTIC TO HELP PREVENT CONSTIPATION. active Spiriva Respimat 2.5 mcg/actuation solution for inhalation INAHLE 1 PUFF BY MOUTH ONCE DAILY active sulfamethoxazole 800 mg-trimethoprim 160 mg tablet TAKE 1 TABLET BY MOUTH TWICE A DAY active Symbicort 160 mcg-4.5 mcg/actuation HFA aerosol inhaler INHALE 1 PUFF TWICE A DAY active tamsulosin 0.4 mg capsule Take 2 capsules every day by oral route at bedtime. active tamsulosin 0.4 mg capsule TAKE 1 CAPSULE BY MOUTH EVERY DAY active trazodone 50 mg tablet 0.5 TABLET AT BEDTIME active Trelegy Ellipta 100 mcg-62.5 mcg-25 mcg powder for inhalation 1 EACH ONCE A DAY 1 INHALATION DAILY active Wixela Inhub 500 mcg-50 mcg/dose powder for inhalation 1 EACH TWICE A DAY active amLODIPine (NORVASC) 5 MG tablet Take 1 tablet (5 mg total) by mouth daily. active amLODIPine (NORVASC) tablet 5 mg Take 1 tablet (5 mg total) by mouth daily. active atorvastatin (LIPITOR) 20 MG tablet Take 1 tablet (20 mg total) by mouth daily. active Pztkbkk-Avbqqzurzzt-Yls moterol (BREZTRI AEROSPHERE IN) Inhale into the lungs daily. active budesonide/glycopyr/for moterol (BREZTRI AEROSPHERE INHL) Inhale into the lungs daily. active calcium carbonate-vitamin D (OSCAL+D) 250 mg-3.125 mcg tablet Take 1 tablet by mouth every morning with breakfast. active dextromethorphan-guaiFE Nesin (MUCINEX DM) 30-600 MG per 12 hr tablet Take 1 tablet by mouth twice daily (every 12 hours). active losartan-hydroCHLOROthi azide (HYZAAR) 100-12.5 MG per tablet Take 1 tablet by mouth daily. active magnesium oxide 400 (240 Mg) MG Tab tablet Take 1 tablet (400 mg total) by mouth daily. Take 2 hours apart from other medications; take with food active memantine (NAMENDA) 10 MG tablet Take 1 tablet (10 mg total) by mouth 2 (two) times a day. active OMEprazole (PriLOSEC) 40 MG capsule Take 1 capsule (40 mg total) by mouth every morning before breakfast. 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 2024-07-09 ProblemAct [facility] Spinal stenosis in cervical region active 2023-02-17 ProblemAct ENS_AONECT Weakness of left arm active 2022-08-30 ProblemAct E[facility]_AON[facility] Cervical myelopathy active 2022-08-30 ProblemAct ENS_AONECT SOB (shortness of breath) active EncounterDiagnosisAct CTTHJM H Cervical spondylosis active 2022-08-30 ProblemAct ENS_AONECT Mixed hyperlipidemia active 2023-08-07 ProblemAct [facility]_THSFRAN Acute kidney injury ([facility] V24) active 2022-11-12 ProblemAct [facility] GERD (gastroesophageal reflux disease) active 2025-02-18 ProblemAct [facility]_THSFRAN Urinary retention active 2022-11-02 ProblemAct [facility]_THSFRAN Spondylosis of cervical region without myelopathy or radiculopathy active 2025-02-18 ProblemAct [facility]_THSFRAN Dizziness active EncounterDiagnosisAct CT_THSFRAN COPD (chronic obstructive pulmonary disease) ([facility] V24, [facility] V28) active 2025-02-18 ProblemAct [facility]_THSFRAN Hypocalcemia active 2025-02-18 ProblemAct CT_TH SFRAN Hypertension active 2023-08-07 ProblemAct CT_TH SFRAN Renal cell cancer, right ([facility] V24, [facility] V28) active 2025-02-18 ProblemAct CT_THSFRAN BPH with urinary obstruction active 2022-11-22 ProblemAct CT_THSFRAN Anemia active 2025-02-18 ProblemAct CT_THSFR AN History of CVA (cerebrovascular accident) active 2025-02-18 ProblemAct CT_THSFRAN Renal mass active 2024-02-06 ProblemAct CT_THSF RAN Hypomagnesemia active 2025-02-18 ProblemAct CT_ THSFRAN Renal insufficiency active 2025-02-18 ProblemAct CT_THSFRAN Prostate specific antigen above reference range active 2024-11-08 ProblemAct ENS_PHCCT Retention of urine active 2022-11-02 ProblemAct ENS_PHCCT Acute kidney injury active 2022-11-12 ProblemAct ENS_PHCCT Benign prostatic hyperplasia with outflow obstruction active 2022-11-12 ProblemAct ENS_PHCC T Reduced libido active 2024-11-01 ProblemAct ENS _PHCCT Chronic kidney disease stage 3B active 2024-11-01 ProblemAct ENS_PHCCT Mixed hyperlipidemia active 2023-08-07 ProblemAct ENS_PHCCT Essential hypertension active 2023-08-07 ProblemAct ENS_PHCCT Immunizations Vaccine Date Source Lot Number Status Zoster Vaccine Recombinant (Shingrix) 05/08/2022 [facility] [id number] completed Influenza, Quadrivalent (FLU AD) Adjuvanted Preservative Free IM 65 years and older 06/09/2021 [facility] [id number] completed Influenza, Quadrivalent (FLU AD) Adjuvanted Preservative Free IM 65 years and older 06/16/2020 [facility] [id number] completed Influenza, Quadrivalent (FLU ARIX, AFLURIA, FLULAVAL, FLUZONE) Preservative Free IM 04/02/2017 [facility] completed Zoster Vaccine Live/Attenuated (Zostavax) 08/23/2015 [facility] completed Zoster,unspecified 08/23/2015 [facility] Pneumococcal Conjugate 13-Valent 06/21/2015 [facility] completed DTaP, Unspecified 09/19/2010 [facility] complet ed Pneumococcal Polysaccharide 23-Valent 09/19/2010 [facility] completed Pneumococcal, Unspecified 09/19/2010 [facility] completed Tdap 09/19/2010 [facility] completed Influenza, Unspecified 05/18/2003 [facility] co mpleted Td, Unspecified 05/02/1999 [facility] completed Encounters Encounter Type Encounter Reason Primary Diagnosis Location Date Ambulatory [facility] 02/23/2025 Ambulatory [facility] 02/23/2025 Ambulatory [facility] 02/23/2025 Ambulatory [place] [employer] [facility] 02/23/2025 Ambulatory [facility] 02/22/2025 Ambulatory [facility] 02/21/2025 Ambulatory [facility] 02/21/2025 Inpatient Dizziness Hypocalcemia [facility] 02/18/2025 Ambulatory Constipation, unspecified Constipation, unspecified [place] [employer] [facility] 01/11/2025 Ambulatory [facility] 01/04/2025 Ambulatory [facility] 12/24/2024 Ambulatory Colon Cancer Screening Colon Cancer Screening [place] [facility] 12/08/2024 Ambulatory Chronic obstructive pulmonary disease, unspecified Chronic obstructive pulmonary disease, unspecified [facility] 12/07/2024 Ambulatory Chronic obstructive pulmonary disease, unspecified (CMS/[facility] V24, CMS/[facility] V28) Chronic obstructive pulmonary disease, unspecified (CMS/[facility] V24, [facility] V28) [facility] 12/02/2024 Ambulatory [facility] 11/30/2024 Ambulatory [facility] 11/29/2024 Ambulatory Chronic obstructive pulmonary disease, unspecified (CMS/HCC V24, [facility]/HCC V28) Chronic obstructive pulmonary disease, unspecified ([facility]/HCC V24, [facility]/HCC V28) [facility] 2024 Ambulatory Chronic obstructive pulmonary disease, unspecified (CMS/HCC V24, [facility]/HCC V28) Chronic obstructive pulmonary disease, unspecified ([facility]/HCC V24, [facility]/HCC V28) [facility] 11/18/2024 Ambulatory Chronic obstructive pulmonary disease, unspecified (CMS/HCC V24, [facility]/HCC V28) Chronic obstructive pulmonary disease, unspecified (CMS/HCC V24, [facility]/HCC V28) [facility] 11/17/2024 Ambulatory Chronic obstructive pulmonary disease, unspecified (CMS/HCC V24, CMS/HCC V28) Chronic obstructive pulmonary disease, unspecified (CMS/HCC V24, [facility]/HCC V28) [facility] 11/11/2024 Ambulatory Chronic obstructive pulmonary disease, unspecified (CMS/HCC V24, CMS/HCC V28) Chronic obstructive pulmonary disease, unspecified (CMS/HCC V24, [facility]/HCC V28) [facility] 11/09/2024 Ambulatory Chronic obstructive pulmonary disease, unspecified (CMS/HCC V24, CMS/HCC V28) Chronic obstructive pulmonary disease, unspecified (CMS/HCC V24, [facility]/HCC V28) [facility] 11/04/2024 Ambulatory Chronic obstructive pulmonary disease, unspecified (CMS/HCC V24, CMS/HCC V28) Chronic obstructive pulmonary disease, unspecified (CMS/HCC V24, CMS/HCC V28) [facility] 11/02/2024 Ambulatory [facility] 10/29/2024 Ambulatory Chronic obstructive pulmonary disease, unspecified (CMS/HCC V24, CMS/HCC V28) Chronic obstructive pulmonary disease, unspecified (CMS/HCC V24, [facility]/HCC V28) [facility] 10/19/2024 Ambulatory Chronic obstructive pulmonary disease, unspecified (CMS/HCC V24, CMS/HCC V28) Chronic obstructive pulmonary disease, unspecified (CMS/HCC V24, [facility]/HCC V28) [facility] 10/14/2024 Ambulatory Chronic obstructive pulmonary disease, unspecified ([facility] V24, [facility] V28) Chronic obstructive pulmonary disease, unspecified ([facility] V24, [facility] V28) [facility] 10/07/2024 Ambulatory [facility] 10/06/2024 Ambulatory [facility] 10/06/2024 Ambulatory Chronic obstructive pulmonary disease, unspecified ([facility] V24, [facility] V28) Chronic obstructive pulmonary disease, unspecified ([facility] V24, [facility] V28) [facility] 10/05/2024 Ambulatory Chronic obstructive pulmonary disease, unspecified ([facility] V24, [facility] V28) Chronic obstructive pulmonary disease, unspecified ([facility] V24, [facility] V28) [facility] 09/30/2024 Ambulatory Chronic obstructive pulmonary disease, unspecified ([facility] V24, [facility] V28) Chronic obstructive pulmonary disease, unspecified ([facility] V24, [facility] V28) [facility] 09/28/2024 Ambulatory Chronic obstructive pulmonary disease, unspecified [facility], [facility] V28) Chronic obstructive pulmonary disease, unspecified ([facility] V24, [facility] V28) [facility] 09/27/2024 Ambulatory Chronic obstructive pulmonary disease, unspecified ([facility] V24, [facility] V28) Chronic obstructive pulmonary disease, unspecified ([facility] V24, [facility] V28) [facility] 09/21/2024 Ambulatory Chronic obstructive pulmonary disease, unspecified ([facility] V24, [facility] V28) Chronic obstructive pulmonary disease, unspecified ([facility] V24, [facility] V28) [facility] 09/09/2024 Ambulatory Chronic obstructive pulmonary disease, unspecified ([facility] V24, [facility] V28) Chronic obstructive pulmonary disease, unspecified ([facility] V24, [facility] V28) [facility] 09/07/2024 Ambulatory Chronic obstructive pulmonary disease, unspecified Chronic obstructive pulmonary disease, unspecified [facility] 08/17/2024 Ambulatory Chronic obstructive pulmonary disease, unspecified Chronic obstructive pulmonary disease, unspecified [facility] 07/09/2024 Inpatient Other specified disorders of kidney and ureter Other specified disorders of kidney and ureter [facility] 03/29/2024 Emergency Shortness of breath Shortness of breath [facility] 08/01/2023 Ambulatory [facility] 03/31/2023 Ambulatory [facility] 02/17/2023 Ambulatory [facility] 12/23/2022 Inpatient Benign prostatic hyperplasia with lower urinary tract symptoms [facility] 11/22/2022 Ambulatory [facility] 09/23/2022 Care Team Organization Name Specialty Phone Email Start Date End Da te [facility] FRANCISCO SARABIA Primary [facility] 04/25/2025 [facility] CORNELL, Primary Care 02/19/2025 [facility] SARABIA, Primary Care 02/18/2025 [facility] Zechariah Sarabia Primary Care 12/16/2024 [facility] Primary Care 12/16/2024 02/09/20 [facility] 12/15/2024 [facility] 12/09/2024 [facility] 12/08/2024 [facility], Primary Care 12/07/2024 03/24/20 [facility] FRANCISCO SARABIA, Primary Care 11/30/2024 [facility], 10/06/2024 04/03/2025 [facility] FRANCISCO SARABIA, Primary Care 09/10/2024 [facility] FRANCISCO SARABIA, Primary Care 09/07/2024 [facility] PCP Shank [facility]rier 08/11/2024 03/24/2025 [place] Primary [facility] 06/07/2024 [facility] 05/06/2024 [facility] FRANCISCO SHAH Primary Care 07/31 [facility]
--- OUTSIDE RECORDS SUMMARY | 2025-04-27 16:33 | XMS_ITS | Encounter Summary ---
Author Organization [facility]ly [facility] Address [address] [place] [address] Care Team Providers [employer] Name Role Phone David Ashley MD Unavailable [phone] Pcp, No Primary Care Provider Unavailabl e David Ashley MD Primary Care Provider [phone] David Ashley MD Unavailable [phone] Encounter Details Date Type Department Care Team (Late st Contact Info) Description 05/06/2024 Scanned Document [facility] [place] [address] [id number] Ezequiel Urbina MD [address] [id number] Social History Tobacco Use Types Packs/Day Years [...] on filedocumented in this encounter Care Teams [employer] Relationship Specialty Start Date End Date David Ashley MD [address] [place] [address] PCP - APN[facility] [employer] Attributed 06/02/23 01/30/25 Pcp, No PCP - General General Medicine 06/07/24 11/29/24 David Ashley MD [address] [place], [place] [address] PCP - General Internal Medicine 11/30/24 David Ashley MD [address] [place], [place] [address] PCP - APNCT [employer] Attributed 03/02/25 documented as of this encounter
--- OUTSIDE RECORDS SUMMARY | 2025-04-27 16:33 | XMS_ITS | Encounter Summary ---
Author Organization [facility] Address [address] [place] [address] Care Team Providers Care Therapeutic Radiologist Name Role Phone David Ashley MD Primary Care Provider [phone] David Ashley MD Unavailable [phone] Encounter Details Date Type Department Care Team (Late st Contact Info) Description 02/08/2025 Scanned Document [facility] [address] [place] [address] Eliud Aaron MD [address] [place] [address] Social History Tobacco Use Types Packs/Day Years [...] on filedocumented in this encounter Care Teams Therapeutic Radiologist Relationship Specialty Start Date End Date David Ashley MD [address] [place] [address] PCP - General Internal Medicine 11/30/24 David Ashley MD [address] [place] [address] PCP - APNCT [employer] Attributed 03/02/25 documented as of this encounter
== END 2025-04-27 13:39 | disposition home or self-care (01) ==
LOC: HO.HKAE 13:25
PROVIDERS: PCP Internal Medicine; Visit Provider Internal Medicine Hypertension Specialist
DX: N18.9 Chronic kidney disease, unspecified (principal)
CPT/HCPCS: 99214

== ENCOUNTER → 2025-04-27 13:25 | Outpatient (BNVA) | payer MEDICARE, SELFPAY | PROVIDERS: PCP Internal Medicine; Visit Provider Internal Medicine Hypertension Specialist | DX: N18.9 Chronic kidney disease, unspecified (principal) | CPT/HCPCS: 99212 ==